=== PATIENT | female | born 1975 | race Caucasian/White ===

== ENCOUNTER 2020-05-06 15:03 | Emergency (ER) | payer OTHER ==
[2020-05-06] MEDS ORDERED: DIAZEPAM 5 MG TABLET ONE (15:32)
[2020-05-06] MEDS ORDERED: FENTANYL CITR 100 MCG/2 ML ONE ×2 (15:32→16:48)
--- NOTE | 2020-05-06 16:22 | RAD REPORT ---
EXAM DESCRIPTION: CTSpine Lumbar Wo Con05/06/2020 4:12 pm CLINICAL HISTORY: Back injury with back pain and radiculopathy COMPARISON: None TECHNIQUE: Computed axial tomography lumbar spine was obtained with coronal and sagittal reconstruct ion. All CT scans are performed using dose optimization technique as appropriate and may include automated exposure control or mA/KV adjustment according to patient size. FINDINGS: Spondylolysis at L5 with mild anterior subluxation L5 on S1. No acute fracture. Spinal stenosis is not noted. IMPRESSION: Spondylolysis at L5 with mild anterior subluxation L5 on S1. No acute fracture.
--- NOTE | 2020-05-06 16:38 | RAD REPORT ---
EXAM DESCRIPTION: CTThoracic Spine W/o Cont05/06/2020 4:13 pm CLINICAL HISTORY: Back injury with Back pain with radiculopathy COMPARISON: None TECHNIQUE: Computed axial tomography of thoracic spine was obtained with coronal and sagittal recons truction. All CT scans are performed using dose optimization technique as appropriate and may include automated exposure control or mA/KV adjustment according to patient size. FINDINGS: Acute burst fracture T12 vertebral body with retropulsion of a fragment into the spinal ca nal. The spinal canal is narrowed approximately 40%. The vertebral body is compressed approximately 6 8%. Involvement of the pedicles is not clearly seen. . Minimal compression of the T4 and T9 vertebral body appears chronic. No dislocation IMPRESSION: T12 vertebral body burst fracture
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
[2020-05-06] MEDS ORDERED: MORPHINE 4 MG/ML SYR ONE (17:15)
[2020-05-06] MEDS ORDERED: NA CHLORIDE 0.9% 100 ML IV ONE ×2 (17:38→18:18)
[2020-05-06] MEDS ORDERED: HYDROMORPHONE HCL 2 MG/ML inj ONE (17:38)
[2020-05-06] MEDS ORDERED: HYDROMORPHONE HCL 1 MG/ML INJ ONE (18:18)
[2020-05-06 18:38] VITALS: TEMP 97.3; O2SAT 100
[2020-05-06 18:45] VITALS: BP 129/91
--- OUTSIDE RECORDS SUMMARY | 2020-05-10 23:21 | XMS REPORT | Clinical Summary ---
:1975 Author Organization [facility] Address [address] [place] [address] Care Team Providers Name Role Phone Unavailable Primary Care Provider Unavailable Allergies No Known Allergies Medications Medication Sig Dispensed Refills Start Date End Date Status lisinopril-hydroCHLORO Take 1 tablet 0 Suspended thiazide by mouth daily. (PRINZIDE,ZESTORETIC) 20-25 mg per tablet levothyroxine Take 100 mcg by 0 Suspended (SYNTHROID, mouth Every LEVOTHROID) 100 MCG morning on an tablet empty stomach. Active Problems Problem Noted Date Intractable pain 05/09/2020 Smoking 05/07/2020 Hypothyroidism 05/07/2020 Hypertension 05/07/2020 T12 burst fracture 05/06/2020 Encounters Date Type Specialty Care Team Description 05/07/2020 Anesthesia Event Donald Bunn MD 05/07/2020 Surgery August Campa, LAMINECTOMY, THORACIC MD W/FUSION 05/06/2020 Hospital Encounter General Internal Denia Pinedo T12 burst fracture (HCC); Medicine MD Elvie Essential hypertension; Joselin Wilson Intractable pain; MD Elías Hypothyroidism, unspecified type Lacy Mishra MD Changela, Kinjal M., MD 05/06/2020 Travel after 05/10/2019 Social History Tobacco Use Types Packs/Day Years Used Date Current Every Day Smoker Cigarettes 0.5 Sta rted: 1988 Smokeless Tobacco: Never Used Tobacco Cessation: Ready to Quit: Yes; C ounseling Given: Yes Sex Assigned at Date Recorded Not on file Job Start Date Occupation Industry Not on file Not on file Not on file Travel History Travel Start Travel End No recent travel history available. Last Filed Vital Signs Vital Sign Reading Time Taken Blood Pressure 113/56 05/10/2020 7:23 PM CDT Pulse 77 05/10/2020 7:23 PM CDT Temperature 37.1 C (98.7 F) 05/10/2020 7:23 PM CDT Respiratory Rate 18 05/10/2020 7:23 PM CDT Oxygen Saturation 99% 05/10/2020 7:23 PM CDT Inhaled Oxygen Concentration - - Weight 64.9 kg (143 lb) 05/06/2020 8:44 PM CDT Height 165.1 cm (5' 5") 05/06/2020 8:44 PM CDT Body Mass Index 23.8 05/06/2020 8:44 PM CDT Plan of Treatment Health Maintenance Due Date Last Done Comments PNEUMOCOCCAL VACCINE 2-64 YEARS AT RISK (1 of - 1981 PPSV23) CERVICAL CANCER SCREENING PAP ONLY (Age 21-65) 1996 LIPID PANEL 2020 INFLUENZA VACCINE (#1) 2020 Implants Implanted 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 Device Shelf Model / Identifier Expiration Serial / Date Lot Grft Aaron Bone 3demin Fbr 5.0 [id number] - [id number] IMPLANTS Spine BACTERIN INTL 01/02/2025 [id number] / Implanted: Qty: 1 on 05/07/2020 by August Campa MD [employer] [id number] / [facility] Aaron Bone 3demin Fbr 10ml [id number] - [id number] IMPLANTS Spine BACTERIN INTL 12/23/2024 [id number] / Implanted: Qty: 1 on 05/07/2020 by August Campa MD Thor[employer] ic INC [id number] / [facility] Aaron Bone 3demin Fbr 5.0 [id number] - [id number] IMPLANTS Spine BACTERIN INTL 01/02/2025 [id number] / Implanted: Qty: 1 on 05/07/2020 by August Campa MD Thorac ic INC [id number] / [employer] Sm [id number] - [id number] IMPLANTS N/A: Spine MEDTRONIC:SPINA 03/03/2022 [id number] / Implanted: Qty: 1 on 05/07/2020 by August Campa MD Thorac ic L [employer]OLOG[employer] / [id number] Scr Marcin Bone Mod St 6.5x45mm 77-1845 - [id number] IMPLANTS N/A : Spine ORTHOFIX [id number] / Implanted: Qty: 4 on 05/07/2020 by August Campa MD Thorac ic INTL:ORTHOFIX / Sid Firebird Str 140mm - [id number] IMPLANTS N/A: Spine ORTHOF IX 520 / Implanted: Qty: 2 on 05/07/2020 by August Campa MD Thorac ic INTL:ORTHOFIX / Grft Aaron Bone 3demin Fbr 10ml [id number] - [id number] IMPLANTS N/A: Spine BACTERIN INTL 12/23/2024 [id number] / Implanted: Qty: 1 on 05/07/2020 by August Campa MD Thor[employer] INC [id number] / Set Screws N/A: Spine ORTHOFIX INC 36-20 01 / Implanted: Qty: 9 on 05/07/2020 by August Campa MD Thorac ic / 5.5 X 25mm Shank N/A: Spine ORTHOFIX INC [id number] / Implanted: Qty: 1 on 05/07/2020 by August Campa MD Thorac ic / 5.5x45mm Shank N/A: Spine ORTHOFIX INC 7 [id number] / Implanted: Qty: 4 on 05/07/2020 by August Campa MD Thorac ic / Top Loading Tulip N/A: Spine ORTHOFIX INC [id number] / Implanted: Qty: 9 on 05/07/2020 by August Campa MD Thorac ic / Procedures The patient is currently admitted. The information in this section might not be complete until the patient is discharged. Procedure Name Priority Date/Time Associated Diagnosis Comme nts CBC W/PLT COUNT & Routine 05/10/2020 4:35 Result s for this AUTO DIFFERENTIAL AM CDT procedure are in the results section. ABORH, MANUAL STAT 05/10/2020 4:35 Results fo r this AM CDT procedure are i n the results section. BASIC METABOLIC PANEL Routine 05/10/2020 4:35 Re sults for this (7) AM CDT procedure are i n the results section. CBC W/PLT COUNT & Routine 05/10/2020 4:35 Result s for this AUTO DIFFERENTIAL AM CDT procedure are in the results section. TRANSFUSION SERVICE 05/08/2020 6:01 REPORT - SCAN PM CDT XR SPINE THORACIC 2 Routine 05/08/2020 4:29 Resu lts for this VIEWS PM CDT procedure are i n the results section. HEMOGLOBIN AND Routine 05/08/2020 4:08 Results f or this HEMATOCRIT AM CDT procedure are i n the results section. BASIC METABOLIC PANEL Routine 05/08/2020 4:08 Re sults for this (7) AM CDT procedure are i n the results section. PROCEDURE W/ C-ARM 05/07/2020 7:20 Compression fractu re PM CDT of thoracic vertebra, initial encounter, unspecified thoracic vertebral level (HCC) Special Needs REQ: KANDI, NEURO MONITOR LAMINECTOMY,THORACIC W/FUSION 05/07/2020 7:20 PM CDT Compression fracture of thoracic vertebra, initial encounter, unspecified thoracic vertebral level (HCC) Special Needs REQ: KANDI, NEURO MONITOR MR THORACIC SPINE WITHOUT STAT 05/07/2020 6:24 PM CDT Results for this IV CONTRAST procedure are i n the results section . FL FLUORO NON-SPECIFIC UP Routine 05/07/2020 10:21 AM CDT Results for this TO 1 HOUR procedure are i n the results section . CBC W/PLT COUNT & AUTO Routine 05/07/2020 4:59 AM CDT Results for this DIFFERENTIAL procedure are i n the results section . TYPE AND SCREEN, AUTOMATED Routine 05/07/2020 4:59 AM CDT Results for this procedure are i n the results section . PT/APTT Routine 05/07/2020 4:59 AM CDT Resu lts for this procedure are i n the results section . BASIC METABOLIC PANEL (7) Routine 05/07/2020 4:59 AM CDT Results for this procedure are i n the results section . CBC W/PLT COUNT & AUTO Routine 05/07/2020 4:59 AM CDT Results for this DIFFERENTIAL procedure are i n the results section . SARS-COV2/RT-PCR (HS & STAT 05/07/2020 12:00 AM CDT Results for this REF LABS) procedure are i n the results section . after 05/10/2019 Results ABORH, manual (05/10/2020 4:35 AM CDT) ABO Grouping O [facility] Rh Factor POS [facility] Specimen Blood Performing Organization Address City/State/Zipcode Phone Number [facility] [address] [place] [address] CBC with platelet count + automated diff (05/10/2020 4:35 AM CDT)Only the most recent of2 resultswithin the time period is included. WBC 6.8 3.5 - 10.5 K/L [facility] RBC 2.88 (L) 3.93 - 5.22 M/L [facility] Hemoglobin 7.7 (L) 11.2 - 15.7 GM/DL [facility] Hematocrit 25.7 (L) 34.1 - 44.9 % [facility] MCV 89.2 79.4 - 94.8 fL [facility] MCH 26.7 25.6 - 32.2 pg [facility] MCHC 30.0 (L) 32.2 - 35.5 GM/DL [facility] RDW 15.0 (H) 11.7 - 14.4 % [facility] Platelets 240 150 - 450 K/CU MM [facility] MPV 10.0 9.4 - 12.3 fL [facility] nRBC 0 0 - 0 /[address] [facility] % Neutros 67 % [facility] % Lymphs 19 % [facility] % Monos 11 % [facility] % Eos 2 % [facility] % Baso 0 % [facility] # Neutros 4.60 1.56 - 6.13 K/L [facility] # Lymphs 1.29 1.18 - 3.74 K/L [facility] # Monos 0.75 (H) 0.24 - 0.36 K/L [facility] # Eos 0.15 0.04 - 0.36 K/L [facility] # Baso 0.02 0.01 - 0.08 K/L [facility] Immature Granulocytes-Relative 0 0 - 1 % C [facility] Specimen Blood Performing Organization Address City/[facility]/Zipcode Phone Number [facility] [address] [place] [address] CENTER Basic Metabolic Panel (05/10/2020 4:35 AM CDT)Only the most recent of3 results within the time period is included. Sodium 133 (L) 136 - 145 meq/L [facility] Potassium 4.7 3.5 - 5.1 meq/L [facility] Chloride 103 98 - 107 meq/L [facility] CO2 24 22 - 29 meq/L [facility] BUN 13 7 - 21 mg/dL [facility] Creatinine 0.72 0.57 - 1.25 mg/dL [facility] Glucose 79 70 - 105 mg/dL [facility] Calcium 8.3 (L) 8.4 - 10.2 mg/dL [facility] EGFR 88Comment: ESTIMATED GFR IS mL/min/1.73 sq m [facility] NOT ACCURATE [facility] CLEARANCE IN PREDICTING GLOMERULAR FILTRATION RATE. ESTIMATED GFR IS NOT APPLICABLE FOR DIALYSIS PATIENTS. Specimen Blood Narrative Performed At Cut Out [facility] HARRY Cardoza [facility] Performing Organization Address City/[facility]/Zipcode Phone Number [facility] [address] [place] [address] [place] TRANSFUSION SERVICE REPORT - SCAN (05/08/2020 6:01 PM CDT) Narrative Performed At This result has an attachment that is no t available. XR spine thoracic 2 views (05/08/2020 4:29 PM CDT) Specimen Narrative Performed At FINAL REPORT [facility] Clinical history: T10-L2 fusion Technique: AP and lateral views are obta ined of the thoracic spine COMPARISON: MRI thoracic spine from 05/07 FINDINGS/IMPRESSION: There are postsurgical changes from post erior instrumented fusion from T10 through L2. Stabilization rods and bi-pedicular screws are present at T10, T11, L1, and L2. Single right uni-pedicular screw noted at T12. Hardware appears intact an d in appropriate position. Overlying skin trudy and surgical drai nage catheter noted. Severe compression deformity again noted within the T12 vertebral body. No acute fracture or dislocation i s appreciated. Signed: Tyron Lang MD Report Verified Date/Time:05/08/2020 22:12:16 Reading Location: [address] Consult [facility] Procedure Note Interface, External Ris In - 05/08/2020 10:14 PM CDT FINAL REPORT Clinical history: T10-L2 fusion Technique: AP and lateral views are obta ined of the thoracic spine COMPARISON: MRI thoracic spine from 05/07 FINDINGS/IMPRESSION: There are postsurgical changes from post erior instrumented fusion from T10 through L2. Stabilization rods and bi-pedicular screws are present at T10, T11, L1, and L2. Single right uni-pedicular screw noted at T12. Hardware appears intact an d in appropriate position. Overlying skin trudy and surgical drai nage catheter noted. Severe compression deformity again noted within the T12 vertebral body. No acute fracture or dislocation i s appreciated. Signed: Tyron Lang MD Report Verified Date/Time: 05/08/2020 2 2:12:16 Reading Location: [facility] C013 Consult [facility] Room Performing Organization Address City/State/Zipcode Phone Number [facility] Hemoglobin and hematocrit (05/08/2020 4:08 AM CDT) Hemoglobin 9.2 (L) 11.2 - 15.7 GM/DL [facility] Hematocrit 29.7 (L) 34.1 - 44.9 % [facility] Specimen Blood Narrative Performed At Cut Out Marker ID - [id number] [facility] Performing Organization Address City/State/Zipcode Phone Number [facility] [address] [place] [address] CENTER MR thoracic spine without IV contrast (05/07/2020 6:24 PM CDT) Specimen Narrative Performed At FINAL REPORT [employer] MR Thoracic spine without contrast. CLINICAL HISTORY: T-spine canal stenosis TECHNIQUE: MRI of the thoracic spine uti lizing sagittal T1, T2, STIR, and axial T1, T2-weighted images. COMPARISON: None FINDINGS: Significant motion artifact on multiple sequences limits evaluation particularly on the STIR sequence. Chron ic height loss of the T4 vertebral body superior endplate. Superi or endplate compression fracture of the T9 vertebral body, with associated marrow edema . Acute compression deformity of the T12 v ertebral body which involves the posterior vertebral body, 8 mm retro pulsion of posterior fracture fragments into the canal resulting in mo derate spinal canal stenosis. There is mild neural foraminal stenosis at T11-12. There is no definite cord signal abnormality. There is likely disruption of the anterior longitudinal ligament at this l evel. Posterior longitudinal ligament is not well evaluated. There is associated focal thoracic kyphosis at T11-12. Mild multilevel degenerative changes with disc space narrowing most notably in the midt horacic spine. Prevertebral edema adjacent to the T12 vertebral body . Otherwise visualized soft tissues are unremarkable. Limited evalua tion for epidural hematoma given motion artifact however no definit e large-volume epidural hematoma is identified.. IMPRESSION: Examination limited by motion artifact. Acute superior endplate compression defo rmity of the T9 vertebral body. Acute compression fracture of the T12 ve rtebral body with focal kyphosis and 8 mm retropulsion of the po sterior fracture fragments into the canal resulting in moderate spi nal canal stenosis. There is likely disruption of the anterior longit udinal ligament. Signed: Ashu Hanley MD Report Verified Date/Time:05/07/2020 18:46:16 Procedure Note Interface, External Ris In - 05/07/2020 6:48 PM CDT FINAL REPORT MR Thoracic spine without contrast. CLINICAL HISTORY: T-spine canal stenosis TECHNIQUE: MRI of the thoracic spine uti lizing sagittal T1, T2, STIR, and axial T1, T2-weighted images. COMPARISON: None FINDINGS: Significant motion artifact on multiple sequences limits evaluation particularly on the STIR sequence. Chron ic height loss of the T4 vertebral body superior endplate. Superi or endplate compression fracture of the T9 vertebral body, with associated marrow edema . Acute compression deformity of the T12 v ertebral body which involves the posterior vertebral body, 8 mm retro pulsion of posterior fracture fragments into the canal resulting in mo derate spinal canal stenosis. There is mild neural foraminal stenosis at T11-12. There is no definite cord signal abnormality. There is likely disruption of the anterior longitudinal ligament at this l evel. Posterior longitudinal ligament is not well evaluated. There is associated focal thoracic kyphosis at T11-12. Mild multilevel de generative changes with disc space narrowing most notably in the midt horacic spine. Prevertebral edema adjacent to the T12 vertebral body . Otherwise visualized soft tissues are unremarkable. Limited evalua tion for epidural hematoma given motion artifact however no definit e large-volume epidural hematoma is identified.. IMPRESSION: Examination limited by motion artifact. Acute superior endplate compression defo rmity of the T9 vertebral body. Acute compression fracture of the T12 ve rtebral body with focal kyphosis and 8 mm retropulsion of the po sterior fracture fragments into the canal resulting in moderate spi nal canal stenosis. There is likely disruption of the anterior longit udinal ligament. Signed: Ashu Hanley MD Report Verified Date/Time: 05/07/2020 1 8:46:16 Performing Organization Address City/State/Zipcode Phone Number GE RIS FL fluoro non-specific up to 1 hour (05/07/2020 10:21 AM CDT) Specimen Narrative Performed At Fluoroscopic unit utilized for a procedure performed i n the OR.No GE RIS interpretation was requested.Refer to the operativ e report for findings.Refer to PACS for patient radiation dose information. Procedure Note Interface, External Ris In - 05/07/2020 10:26 PM CDT Fluoroscopic unit utilized for a procedu re performed in the OR. No interpretation was requested. Refer to the operative r eport for findings. Refer to PACS for patient radiation dose information. Performing Organization Address City/[facility] Phone Number GE RIS Type and screen, automated (05/07/2020 4:59 AM CDT) ABO/RH AUTOMATED (BEAKER) O POSITIVE [facility] Ab Scrn NEGATIVE [facility] Specimen Blood Performing Organization Address [facility] Centercode Phone Number [address] [address] PT/aPTT (05/07/2020 4:59 AM CDT) Protime 13.1 11.9 - 14.2 seconds [facility] INR 1.02 <=5.90 [facility] PTT 30.0 22.5 - 36.0 seconds [facility] Specimen Blood Narrative Performed At Effective 12/30/2018: PT Reference Range [facility] Change New: 11.9-14.2Previous: 11.7-14.7 RECOMMENDED COUMADIN/WARFARIN INR THERAPY RANGES STANDARD DOSE: 2.0-3.0Includes: PROPHYLAXIS for venous thrombosis, systemic embolization; TREATMENT for venous thrombosis and/or pulmonary embolus. HIGH RISK: Target INR is 2.5-3.5 for patients wiht mechanical heart valves. Performing Organization Address [facility] Cent[facility]ode Phone Number [address] [address] CENTER SARS-CoV2/RT-PCR (Asymptomatic ONLY) (05/07/2020 12:00 AM CDT) SARS-COV2/RT-PCR Negative Not Detected, Negative, [facility] See external report for MEDICAL CENTER linked test SARS-COV-2 PERFORMING LAB [facility] Specimen Other Narrative Performed At Negative result for this test determines that [facility] SARS-CoV-2 RNA was not present in the specimen above the Limit of Detection (LOD).However, Negative results do not preclude SARS-CoV-2 infection and should not be used as the sole basis for treatment or patient management decisions. Negative results must be combined with clinical observations, patient history, and epidemiological information. A false negative result may occur if a specimen is improperly collected, transported or handled.A false negative result should be considered if patient's recent exposures or clinical presentation indicate that COVID-19 (SARS-CoV-2) is likely and diagnostic tests for other causes of illness are negative.Re-testing should be considered in cases of suspected false negatives. The limit of detection for this assay is 800 copies/mL. This SARS CoV-2 test is a real-time RT-PCR test intended for the qualitative detection of nucleic acid from SARS-CoV-2 in a nasopharyngeal swab specimen collected from individuals suspected of COVID-19 by their healthcare provider. This test has not been Food and Drug Administration (FDA) cleared or approved.This is a modified version of an approved Emergency Use Authorization (EUA) and is in the process of review by the FDA. Once authorized by the FDA, the issued EUA will be effective until the declaration that circumstances exist justifying the authorization of the emergency use of in vitro diagnostic tests for detection and/or diagnosis of COVID-19 is terminated under Section 564(b)(2) of the Act or the EUA is revoked under Section 564(g) of the Act. Fact Sheet for Healthcare Providers: https://www.[employer]com/sites/default/files/pro duct/documents/Fact_Sheet_HC_Providers_Lyra_SA RS-CoV-2.pdf Fact Sheet for Healthcare Patients: https://www.[employer] [place] [employer]com/sites/default/files/pro duct/documents/Fact_Sheet_Patients_Lyra_SARS-C oV-2.pdf Performing Laboratory: [facility] [address] [place] [address] Performing Organization Address City/State/Zipcode Phone Number [facility] [address] [place] [address] CENTER after 05/10/2019 Insurance Payer Benefit Plan / Group Subscriber ID Type Phone A indira VARGAS xxxxxxxxxxx Advance Directives For more information, please contact:[facility] [place], [place] [phone] Code Status Date Activated Date Inactivated Comments Full Code 05/06/2020 8:17 PM This code status was determined by: Patient
--- OUTSIDE RECORDS SUMMARY | 2020-05-10 23:22 | XMS REPORT | Continuity of Care Document ---
:1975 Author Organization [facility] t Address [address] [place] [address] Care Team Providers Name Role Phone Sepideh DICK, Yamilet Attending Clinician Joey Campa MD Attending Clinician CARLOS MENDIOLA Attending Clinician Unavailable Carlos Mendiola MD Attending Clinician [phone] Elías Wilson MD Attending Clinician Andree Mishra MD Attending Clinician Israel Peres MD Attending Clinician Israel PERES Admitting Clinician Unavailable Payers Payer Name Policy Policy Number Effective Expiration Source Type Date Date AMBETTERAMBETTER xxxxxxxxxxx [facility] SU[facility]IOR[facility]xxx [facility] Problems Condition Condition Condition Status Onset Resolution Last Treating Co mments Source Name Details Category Date Date Treatment Clinician Date Intractabl Intractabl Disease Active 2019-[address] [facility] 00 Luna Smoking Smoking Disease Active 2019-[address] [facility] [address] [facility] 00 [facility] Hypothyroi Hypothyroi Disease Active 2019-[address] dism dism 0-04 [facility] - :: Medical 00 Luna Hypertensi Hypertensi Disease Active 2019-[address] on on 0-04 [facility] 00:00: Medical 00 Luna T12 burst T12 burst Disease Active 2019-[address] [facility] fracture fracture 0-03 [facility] :[facility]: [facility] 00 Center Allergies, Adverse Reactions, Alerts This patient has no known allergies or adverse reactions. Social History Social Habit Start Date Stop Date Quantity Comments Source History of tobacco Current every [facility] - use day smoker [facility] Center Sex Assigned At [facility] Cigarettes smoked 2020-05-10 2020-05-10 [facility] - current (pack per 00:00:00 00:00:00 Medical Center day) - Reported Smoking Status Start Date Stop Date Source Current every day smoker 2020-05-10 00:00:00 [facility] Medications Ordered Filled Start Stop Current Ordering Indication Dosage Frequency Signature Comments Components Source Medication Medication Date Date Medication? Clinician (SIG) Name Name lisinopril- 2019-08 Yes 1{tbl} QD Take [address] hydroCHLORO 0-03 tablet by Jairon es - thiazide 23:23: mouth Medical (PRINZIDE,Z 43 daily. Center ESTORETIC) 20-25 mg per tablet levothyroxi 2019-08 Yes 100ug Take [address] ne 0-03 mcg by Thiago - (SYNTHROID, 23:23: mouth Medic al LEVOTHROID) 43 Every Center 100 MCG morning on tablet an empty stomach. Vital Signs Vital Name Observation Time Observation Value Comments Source Systolic blood 2020-05-10 19:23:00 113 mm[Hg] [facility] Diastolic blood 2020-05-10 19:23:00 56 mm[Hg] [facility] Heart rate 2020-05-10 19:23:00 77 /min [facility] Body temperature 2020-05-10 19:23:00 37.06 Faby [facility] Respiratory rate 2020-05-10 19:23:00 18 /min [facility] Oxygen saturation in 2020-05-10 19:23:00 99 /min [facility] Arterial blood by Medical Ce nter Pulse oximetry Body height 2020-05-06 20:44:00 165.1 cm [facility] Body weight Measured 2020-05-06 20:44:00 64.864 kg [facility] BMI 2020-05-06 20:44:00 23.80 kg/m2 [facility] Procedures Procedure Date / Time Performed Performing Clinician Sour e BASIC METABOLIC PANEL 2020-05-10 04:35:[address] [facility] (7) [facility] ABORH, MANUAL 2020-05-10 04:35:00 Candy Urena [facility] CBC W/PLT COUNT & AUTO 2020-05-10 04:35:[address] [facility] DIFFERENTIAL [facility] TRANSFUSION SERVICE 2020-05-08 18:01:47 Provider, Valdemar [facility] - REPORT - SCAN Scanning [facility] XR SPINE THORACIC 2 2020-05-08 16:29:00 Kayla Parks [facility] - VIEWS [facility] BASIC METABOLIC PANEL 2020-05-08 04:08:[address] [facility] (7) [facility] HEMOGLOBIN AND 2020-05-08 04:08:00 Kayla Parks [facility] - HEMATOCRIT [facility] LAMINECTOMY,THORACIC 2020-05-07 19:20:00 August Campa [facility] - W/FUSION [facility] PROCEDURE W/ C-ARM 2020-05-07 19:20:00 August Campa [facility] - [facility] MR THORACIC SPINE 2020-05-07 18:24:00 Kayla Parks [facility] - WITHOUT IV CONTRAST [facility] FL FLUORO NON-SPECIFIC 2020-05-07 10:21:00 August Campa [facility] - UP TO 1 HOUR [facility] BASIC METABOLIC PANEL 2020-05-07 04:59:[address] [facility] (7) [facility] PT/APTT 2020-05-07 04:59:00 Channing Moctezuma [facility] TYPE AND SCREEN, 2020-05-07 04:59:00 Channing Moctezuma [facility] s - AUTOMATED Medical Center CBC W/PLT COUNT & AUTO 2020-05-07 04:59:00 Channing Moctezuma [facility] - DIFFERENTIAL [facility] SARS-COV2/RT-PCR ([facility] & 2020-05-07 00:00:00 Channing Moctezuma [facility] - REF LABS) [facility] Plan of Care Planned Activity Planned Date Details Comments Source Future Scheduled 2020-04-04 INFLUENZA VACCINE (#1) [facility] Test 00:00:00 [code = INFLUENZA Medical Ce nter VACCINE (#1)] Future Scheduled [address] [facility] - Test 00:00:00 (procedure) [code = Medical Center [id number]] Future Scheduled [address] [facility] - Test 00:00:00 malignant neoplasm of [facility] cervix (procedure) [code = 956713677] Future Scheduled [address] [facility] - Test 00:00:00 2-64 YEARS AT RISK (1 Medica l Center of 1 - PPSV23) [code = PNEUMOCOCCAL VACCINE 2-64 YEARS AT RISK (1 of 1 - PPSV23)] Results Test Description Test Time Test Comments Results Result Comments Source KATELYN, manual 2020-05-10 07:09:00 Test Item Value Reference Range Interpretation Comme nts ABO Grouping (test code = 2588) O Rh Factor (test code = 2589) POS [facility] Metabolic [id number] 06:29:00 Test Item Value Reference Range Interpretation Comments Sodium (test code = 133 meq/L 136-145 L 2951-2) Potassium (test code = 4.7 meq/L 3.5-5.1 2823-3) Chloride (test code = 103 meq/L 98-107 2075-0) CO2 (test code = 24 meq/L 22-29 2028-9) BUN (test code = 13 mg/dL 7-21 3094-0) Creatinine (test code 0.72 mg/dL 0.57-1.25 = 2160-0) Glucose (test code = 79 mg/dL 70-105 2345-7) Calcium (test code = 8.3 mg/dL 8.4-10.2 L 52308-0) EGFR (test code = 88 mL/min/1.73 [place] [address]-6) NOT ACCURATE CREATININE CLEARANCE IN PREDICTING GLOMERULAR FILTRATION RATE . ESTIMATED GFR I S NOT APPLICABLE FOR DIALYSIS PATIENTS. RE (test code = RE) Cost Reduction Engineer ID - ANGELY M Lab Interpretation Abnormal (test code = 85621-2) [facility] METABOLIC [id number] 06:29:00 Test Item Value Reference Range Interpretation Comments SODIUM (BEAKER) 133 meq/L 136-145 L (test code = 381) POTASSIUM (BEAKER) 4.7 meq/L 3.5-5.1 (test code = 379) CHLORIDE (BEAKER) 103 meq/L 98-107 (test code = 382) CO2 (BEAKER) (test 24 meq/L 22-29 code = 355) BLOOD UREA NITROGEN 13 mg/dL 7-21 (BEAKER) (test code = 354) CREATININE (BEAKER) 0.72 mg/dL 0.57-1.25 (test code = 358) GLUCOSE RANDOM 79 mg/dL 70-105 (BEAKER) (test code = 652) CALCIUM (BEAKER) 8.3 mg/dL 8.4-10.2 L (test code = 697) EGFR (BEAKER) (test 88 mL/min/1.73 ESTIMA LORRIE GFR IS code = 1092) sq m NOT ACCURATE CREATININE CLEARANCE IN PREDICTING GLOMERULAR FILTRATION RATE . ESTIMATED GFR I S NOT APPLICABLE FOR DIALYSIS PATIEN TS. Cost Reduction Engineer ID - ANGELY MCBC with platelet count + automated [id number] 05:48:00 Test Item Value Reference Range Interpretation Comments WBC (test code = 6690-2) 6.8 3.5- 10.5 K/L RBC (test code = 789-8) 2.88 3.93- 5.22 M/L L MCHC (test code = 786-4) 30.0 32.2- 35.5 GM/DL L Hematocrit (test code = 4544-3) 25.7 % 34.1-44.9 L MCV (test code = 787-2) 89.2 fL 79.4-94.8 MCH (test code = 785-6) 26.7 pg 25.6-32.2 RDW (test code = 788-0) 15.0 % 11.7-14.4 H Platelets (test code = 777-3) 240 150- 450 K/CU MM MPV (test code = 52187-2) 10.0 fL 9.4-12.3 nRBC (test code = 413) 0 0- 0 /100 WBC % Neutros (test code = 429) 67 % % Lymphs (test code = 430) 19 % % Monos (test code = 431) 11 % % Eos (test code = 432) 2 % % Baso (test code = 437) 0 % # Neutros (test code = 670) 4.60 1.56- 6.13 K/L # Lymphs (test code = 414) 1.29 1.18- 3.74 K/L # Monos (test code = 415) 0.75 0.24- 0.36 K/L H # Eos (test code = 416) 0.15 0.04- 0.36 K/L # Baso (test code = 417) 0.02 0.01- 0.08 K/L Immature Granulocytes-Relative 0 % 0-1 (test code = 2801) Lab Interpretation (test code = Abnormal 17709-9) [facility] W/PLT COUNT & AUTO [id number] 05:48:00 Test Item Value Reference Range Interpretation Comments WHITE BLOOD CELL COUNT (BEAKER) 6.8 K/ L 3.5-10.5 (test code = 775) RED BLOOD CELL COUNT (BEAKER) 2.88 M/ L 3.93-5.22 L (test code = 761) HEMOGLOBIN (BEAKER) (test code = 7.7 GM/DL 11.2-15.7 L 410) HEMATOCRIT (BEAKER) (test code = 25.7 % 34.1-44.9 L 411) MEAN CORPUSCULAR VOLUME (BEAKER) 89.2 fL 79.4-94.8 (test code = 753) MEAN CORPUSCULAR HEMOGLOBIN 26.7 pg 25.6-32.2 (BEAKER) (test code = 751) MEAN CORPUSCULAR HEMOGLOBIN CONC 30.0 GM/DL 32.2-35.5 L (BEAKER) (test code = 752) RED CELL DISTRIBUTION WIDTH 15.0 % 11.7-14.4 H (BEAKER) (test code = 412) PLATELET COUNT (BEAKER) (test 240 K/CU MM 150-450 code = 756) MEAN PLATELET VOLUME (BEAKER) 10.0 fL 9.4-12.3 (test code = 754) NUCLEATED RED BLOOD CELLS 0 /100 WBC 0-0 (BEAKER) (test code = 413) NEUTROPHILS RELATIVE PERCENT 67 % (BEAKER) (test code = 429) LYMPHOCYTES RELATIVE PERCENT 19 % (BEAKER) (test code = 430) MONOCYTES RELATIVE PERCENT 11 % (BEAKER) (test code = 431) EOSINOPHILS RELATIVE PERCENT 2 % (BEAKER) (test code = 432) BASOPHILS RELATIVE PERCENT 0 % (BEAKER) (test code = 437) NEUTROPHILS ABSOLUTE COUNT 4.60 K/ L 1.56-6.13 (BEAKER) (test code = 670) LYMPHOCYTES ABSOLUTE COUNT 1.29 K/ L 1.18-3.74 (BEAKER) (test code = 414) MONOCYTES ABSOLUTE COUNT (BEAKER) 0.75 K/ L 0.24-0.36 H (test code = 415) EOSINOPHILS ABSOLUTE COUNT 0.15 K/ L 0.04-0.36 (BEAKER) (test code = 416) BASOPHILS ABSOLUTE COUNT (BEAKER) 0.02 K/ L 0.01-0.08 (test code = 417) IMMATURE GRANULOCYTES-RELATIVE 0 % 0-1 PERCENT (BEAKER) (test code = 2801) RAD, SPINE, THORACIC, 2 [id number] 22:12:00Reason for exam:->Standing thoracolumbar spine xray, (fusion T10-L2)FINAL REPORT Clinical history: T10-L2 fusion Technique: AP and lateral views are obtained of the thoracic spine COMPARISON: MRI thoracic spine from 05/07/2020 FINDINGS/IMPRESSION:There are postsurgical changes from posterior instrumented fusion from T10 through L2. Stabilization rods and bi-pedicular screws are present at T10, T11, L1, and L2. Single right uni-pedicular screw noted at T12. Hardware appears intact and in appropriate position. Overlying skin trudy and surgical drainage catheter noted. Severe compression deformity again noted within the T12 vertebral body. No acute fracture or dislocation is appreciated. Signed: Tyron Lang MDReport Verified Date/Time: 05/08/2020 22:12:16 Reading Location: [facility] C013W Consult Reading Room XR spine thoracic 2 [id number] 22:12:00Interface, External Ris In - 05/08/2020 10:14 PM CDTFINAL REPORT Clinical history: T10-L2 fusion Technique: AP and lateral views are obtained of the thoracic spine COMPARISON: MRI thoracic spine from 05/07/2020 FINDINGS/IMPRESSION:There are postsurgical changes from posterior instrumented fusion from T10 through L2. Stabilization rods and bi-pedicular screws are present at T10, T11, L1, and L2. Single right uni-pedicular screw noted at T12. Hardware appears intact and in appropriate position. Overlying skin trudy and surgical drainage catheter noted. Severe compression deformity again noted within the T12 vertebral body. No acute fracture or dislocation is appreciated. Signed: Tyron Lang MDReport Verified Date/Time: 05/08/2020 22:12:16 Reading Location: [facility] C013W Consult Reading [facility] [id number] 05:07:00 Test Item Value Reference Range Interpretation Comments SODIUM (BEAKER) 134 meq/L 136-145 L (test code = 381) POTASSIUM (BEAKER) 5.0 meq/L 3.5-5.1 (test code = 379) CHLORIDE (BEAKER) 103 meq/L 98-107 (test code = 382) CO2 (BEAKER) (test 22 meq/L 22-29 code = 355) BLOOD UREA NITROGEN 16 mg/dL 7-21 (BEAKER) (test code = 354) CREATININE (BEAKER) 0.78 mg/dL 0.57-1.25 (test code = 358) GLUCOSE RANDOM 151 mg/dL 70-105 H (BEAKER) (test code = 652) CALCIUM (BEAKER) 8.0 mg/dL 8.4-10.2 L (test code = 697) EGFR (BEAKER) (test 80 mL/min/1.73 ESTIMA LORRIE GFR IS code = 1092) sq m NOT ACCURATE CREATININE CLEARANCE IN PREDICTING GLOMERULAR FILTRATION RATE . ESTIMATED GFR I S NOT APPLICABLE FOR DIALYSIS PATIEN TS. Cost Reduction Engineer ID - EDASIHemoglobin and [id number] 04:30:00 Test Item Value Reference Range Interpretation Comments Hemoglobin (test code = 9.2 11.2- 15.7 GM/DL L 786-4) Hematocrit (test code = 29.7 % 34.1-44.9 L 4544-3) RE (test code = RE) Cost Reduction Engineer ID - [id number] Lab Interpretation (test Abnormal code = 47344-8) [facility] AND [id number] 04:30:00 Test Item Value Reference Range Interpretation Comments HEMOGLOBIN (BEAKER) (test code = 9.2 GM/DL 11.2-15.7 L 410) HEMATOCRIT (BEAKER) (test code = 29.7 % 34.1-44.9 L 411) Cost Reduction Engineer ID - [id number], SPINE, THORACIC, WITHOUT [id number] 18:46:00 Unlisted Reason for Exam - Click Yes and Enter Reason Below->NoT 12 traumatic fractureFINAL REPORT MR Thoracic spine without contrast. CLINICAL HISTORY: T-spine canal stenosis TECHNIQUE: MRI of the thoracic spine utilizing sagittal T1, T2, STIR, and axial T1, T2-weighted images. COMPARISON: None FINDINGS:Significant motion artifact on multiple sequences limits vinh luation particularly on the STIR sequence. Chronic height loss of the T4 vertebral body superior endplate. Superior endplate compression fracture of the T9 vertebral body, with associated marrow edema . Acute compression deformity of the T12 vertebral body which involves the posterior vertebral body, 8 mm retropulsion of posterior fracture fragments into the canal resulting in moderate spinal canal stenosis. There is mild neural foraminal stenosis at T11- 12. There is no definite cord signal abnormality. There is likely disruption of the anterior longitudinal ligament at this level. Posterior longitudinal ligament is not well evaluated. There is associated focal thoracic kyphosis at T11-12. Mild multilevel degenerative changes with disc space narrowing most notably in the midthoracic spine. Prevertebral edema adjacent to the T12 vertebral body. Otherwise visualized soft tissues are unremarkable. Limited evaluation for epidural hematoma given motion artifact however no definite large-volume epidural hematoma is identified.. IMPRESSION: Examination limited by motion artifact. Acute superior endplate compression deformity of the T9 vertebral body. Acute compression fracture of the T12 vertebralbody with focal kyphosis and 8 mm retropulsion of the posterior fracture fragments into the canal resulting in moderate spinal canal stenosis. There is likely disruption of the anterior longitudinal ligament. Signed: Ashu Hanley [facility] Verified Date/Time: 05/07/2020 18:46:16 MR thoracic spine without IV contrast 2020-05-07 18:46:00Interface, External Ris In - 05/07/2020 6:48 PM CDTFINAL REPORT MR Thoracic spine without contrast. CLINICAL HISTORY: T-spine canal stenosis TECHNIQUE: MRI of the thoracic spineutilizing sagittal T1, T2, STIR, and axial T1, T2-weighted images. COMPARISON: None FINDINGS:Significant motion artifact on multiple sequences limits evaluation particularly on the STIR sequence. Chronic height loss of the T4 vertebral body superior endplate. Superior endplate compression fracture of the T9 vertebral body, with associated marrow edema . Acute compression deformity of the T12 vertebral body which involves the posterior vertebral body, 8 mm retropulsion of posterior fracture fragmentsinto the canal resulting in moderate spinal canal stenosis. There is mild neural foraminal stenosis at T11-12. There is no definite cord signal abnormality. There is likely disruption of the anterior lo ngitudinal ligament at this level. Posterior longitudinal ligament is not well evaluated. There is associated focal thoracic kyphosis at T11-12. Mild multilevel degenerative changes with disc space narrowing most notably in the midthoracic spine. Prevertebral edema adjacent to the T12 vertebral body. Otherwise visualized soft tissues are unremarkable. Limited evaluation for epidural hematoma given motion artifact however no definite large-volume epidural hematoma is identified.. IMPRESSION: Examination limited by motion artifact. Acute superior endplate compression deformity of the T9 vertebral mohit dy. Acute compression fracture of the T12 vertebral body with focal kyphosis and 8 mm retropulsion of the posterior fracture fragments into the canal resulting in moderate spinal canal stenosis. There is likely disruption of the anterior longitudinal ligament. Signed: [facility] Verified Date/Time: 05/07/2020 18:46:16 [facility]ymptomatic ONLY[facility]2020-05-07 17:00:00 Test Item Value Reference Range Interpretation Comments SARS-COV2/RT-PCR Negative Not Detected, (test code = Negative, See 30572-6) external report for linked test SARS-COV-2 [facility] PERFORMING LAB (test code = 83028-4) RE (test code = Negative result for this RE) test determines that SARS-CoV-2 RNA was not present in the specimen above the Limit of Detection (LOD). However, Negative results do not preclude SARS-CoV-2 infection and should not be used as the sole basis for treatment or patient management decisions. Negative results must be combined with clinical observations, patient history, and epidemiological information. A false negative result may occur if a specimen is improperly collected, transported or handled. A false negative result should be considered if patient's recent exposures or clinical presentation indicate that COVID-19 (SARS-CoV-2) is likely and diagnostic tests for other causes of illness are negative. Re-testing should be considered in cases of suspected [...] Food and Drug Administration (FDA) cleared or approved. This is a modified version of an approved [...] of the Act. Fact Sheet for Healthcare Providers:https://www.[employer]/sites/default/f sherif/product/documents/F act_Sheet_HC_Providers_L sox_ANEC-BeA-7.pdf Fact Sheet for Healthcare Patients:https://www.[employer] del.[employer]/sites/default/fi les/product/documents/Fa ct_Sheet_Patients_Lyra_S ARS-CoV-2.pdf Performing Laboratory:[facility] [address] [facility] ([facility] & REF LABS)2020-05-07 17:00:00 Test Item Value Reference Range Interpretation Comments SARS-COV2/RT-PCR (test Negative Not Detected, Negative, code = 0294664) See external report for linked test SARS-COV-2 PERFORMING LAB [facility] (test code = 4445750) Negative result for this test determines that SARS-CoV-2 RNA was not present in the specimen above the Limit of Detection (LOD). However, Negative results do not preclude SARS-CoV-2 infection and should not be used as the sole basis for treatment or patient management decisions. Negative results mustbe combined with clinical observations, patient history, and epidemiological information. A false negative result may occur if a specimen is improperly collected, transported or handled. A false negative result should be considered if patient's recent exposures or clinical presentation indicate that COVID-19 (SARS-CoV-2) is likely and diagnostic tests for other causes of illness are negative. Re-testing should be considered in cases of suspected false negatives.The limit of detection for this assay is 800 copies/mL.This SARS CoV-2 test is a real-time RT-PCR test intended for the qualitative detection of nucleic acid from SARS-CoV-2 in a nasopharyngeal swab specimen collected from individuals susp ected of COVID-19 by their healthcare provider.This test has not been Food and Drug Administration (FDA) cleared or approved. This is a modified version of an approved [...] is revoked under Section 564(g) of the Act.Fact Sheet for Healthcare Providers:https://www.[employer].com/sites/default/files/product/documents/Fact_Shee q_PJ_Rekgxxvol_Uwug_QVBI-ZpJ-2.pdfFact Sheet for Healthcare Patients:https://www.[employer].com/sites/default/files/product/ documents/Eylx_Fjhrj_Nnpwcdpd_Fkug_KDJO-NpI-0.pdfPerforming Laboratory:[place] [address], [place] [address]MJ, FLUORO, NON- SPECIFIC, UP TO 1 [id number] 10:21:00Reason for exam:->T10 TO L2 Fluoroscopic unit utilized for a procedure performed in the OR. No interpretation was requested. Refer to the operative report for findings. Refer to PACS for patient radiation dose information.FL fluoro non-specific up to 1 [id number] 10:21:00Interface, External Ris In - 05/07/2020 10:26 PM CDTFluoroscopic unit utilized for a procedure performed in the OR. No interpretation was requested. Refer to the operative report for findings. Referto PACS for patient radiation dose information.[facility]OLIC [id number] 06:52:00 Test Item Value Reference Range Interpretation Comments SODIUM (BEAKER) 134 meq/L 136-145 L (test code = 381) POTASSIUM (BEAKER) 3.9 meq/L 3.5-5.1 (test code = 379) CHLORIDE (BEAKER) 99 meq/L 98-107 (test code = 382) CO2 (BEAKER) (test 26 meq/L 22-29 code = 355) BLOOD UREA NITROGEN 13 mg/dL 7-21 (BEAKER) (test code = 354) CREATININE (BEAKER) 0.76 mg/dL 0.57-1.25 (test code = 358) GLUCOSE RANDOM 90 mg/dL 70-105 (BEAKER) (test code = 652) CALCIUM (BEAKER) 8.6 mg/dL 8.4-10.2 (test code = 697) EGFR (BEAKER) (test 82 mL/min/1.73 ESTIMA LORRIE GFR IS code = 1092) sq m NOT ACCURATE CREATININE CLEARANCE IN PREDICTING GLOMERULAR FILTRATION RATE . ESTIMATED GFR I S NOT APPLICABLE FOR DIALYSIS PATIEN TS. Cost Reduction Engineer ID - [id number] 06:01:00 Test Item Value Reference Range Interpretation Comments Protime (test code = 13.1 11.9- 14.2 5902-2) seconds INR (test code = 1.02 <=5.90 6301-6) PTT (test code = 30.0 22.5- 36.0 43113-9) seconds RE (test code = RE) Effective 12/30/2018: PT Reference Range ChangeNew: 11.9-14.2 Previous: 11.7-14.7 RECOMMENDED COUMADIN/WARFARIN INR THERAPY RANGESSTANDARD DOSE: 2.0-3.0 Includes: PROPHYLAXIS for venous thrombosis, systemic embolization; TREATMENT for venous thrombosis and/or pulmonary embolus.HIGH RISK: Target INR is 2.5-3.5 for patients wiht mechanical heart valves. Lab Interpretation Normal (test code = 14332-3) [facility][id number] 06:01:00 Test Item Value Reference Range Interpretation Comments PROTIME (BEAKER) (test code = 13.1 seconds 11.9-14.2 759) INR (BEAKER) (test code = 370) 1.02 <=5.90 PARTIAL THROMBOPLASTIN TIME 30.0 seconds 22.5-36.0 (BEAKER) (test code = 760) Effective 12/30/2018: PT Reference Range ChangeNew: 11.9-14.2 Previous: 11.7- 14.7RECOMMENDED COUMADIN/WARFARIN INR THERAPY RANGESSTANDARD DOSE: 2.0-3.0 Includes: PROPHYLAXIS for venous thrombosis, systemic embolization; TREATMENT for venous thrombosis and/or pulmonary embolus.HIGH RISK: Target INR is2.5-3.5 for patients wiht mechanical heart valves.CBC W/PLT COUNT & AUTO [id number] 05:53:00 Test Item Value Reference Range Interpretation Comments WHITE BLOOD CELL COUNT (BEAKER) 7.5 K/ L 3.5-10.5 (test code = 775) RED BLOOD CELL COUNT (BEAKER) 3.93 M/ L 3.93-5.22 (test code = 761) HEMOGLOBIN (BEAKER) (test code = 10.5 GM/DL 11.2-15.7 L 410) HEMATOCRIT (BEAKER) (test code = 34.8 % 34.1-44.9 411) MEAN CORPUSCULAR VOLUME (BEAKER) 88.5 fL 79.4-94.8 (test code = 753) MEAN CORPUSCULAR HEMOGLOBIN 26.7 pg 25.6-32.2 (BEAKER) (test code = 751) MEAN CORPUSCULAR HEMOGLOBIN CONC 30.2 GM/DL 32.2-35.5 L (BEAKER) (test code = 752) RED CELL DISTRIBUTION WIDTH 14.8 % 11.7-14.4 H (BEAKER) (test code = 412) PLATELET COUNT (BEAKER) (test 315 K/CU MM 150-450 code = 756) MEAN PLATELET VOLUME (BEAKER) 9.4 fL 9.4-12.3 (test code = 754) NUCLEATED RED BLOOD CELLS 0 /100 WBC 0-0 (BEAKER) (test code = 413) NEUTROPHILS RELATIVE PERCENT 71 % (BEAKER) (test code = 429) LYMPHOCYTES RELATIVE PERCENT 17 % (BEAKER) (test code = 430) MONOCYTES RELATIVE PERCENT 10 % (BEAKER) (test code = 431) EOSINOPHILS RELATIVE PERCENT 1 % (BEAKER) (test code = 432) BASOPHILS RELATIVE PERCENT 0 % (BEAKER) (test code = 437) NEUTROPHILS ABSOLUTE COUNT 5.31 K/ L 1.56-6.13 (BEAKER) (test code = 670) LYMPHOCYTES ABSOLUTE COUNT 1.29 K/ L 1.18-3.74 (BEAKER) (test code = 414) MONOCYTES ABSOLUTE COUNT (BEAKER) 0.75 K/ L 0.24-0.36 H (test code = 415) EOSINOPHILS ABSOLUTE COUNT 0.10 K/ L 0.04-0.36 (BEAKER) (test code = 416) BASOPHILS ABSOLUTE COUNT (BEAKER) 0.02 K/ L 0.01-0.08 (test code = 417) IMMATURE GRANULOCYTES-RELATIVE 0 % 0-1 PERCENT (BEAKER) (test code = 2801) Type and screen, [id number] 05:52:00 Test Item Value Reference Range Interpretation Comments ABO/RH AUTOMATED (BEAKER) (test O POSITIVE code = 2260) Ab Scrn (test code = 890-4) NEGATIVE [facility]
== END 2020-05-06 18:22 | disposition short-term general hospital (02) ==
LOC: ER 15:03
DX: S22.081A Stable burst fracture of T11-T12 vertebra, initial encounter for closed fracture (principal); X58.XXXA Exposure to other specified factors, initial encounter; Y93.89 Activity, other specified; Y92.89 Other specified places as the place of occurrence of the external cause; F17.210 Nicotine dependence, cigarettes, uncomplicated; I10 Essential (primary) hypertension
CPT/HCPCS: 72131; 72128; 96375; 96372; 96374; 99285; J1170 ×2; J3010 ×2

== ENCOUNTER 2020-10-11 14:15 | Emergency (ER) | payer OTHER, SELFPAY ==
--- OUTSIDE RECORDS SUMMARY | 2020-10-11 14:19 | XMS REPORT | Continuity of Care Document ---
:1975 Author Organization [facility] t Address [address] [place] [address] Care Team Providers Name Role Phone Lokesh DICK, Joey Attending Clinician Unavailable Dimple COLLINS, Radha Attending Clinician Carlos Mendiola MD Attending Clinician [phone] Steve DICK, Elías Attending Clinician Andree Mishra MD Attending Clinician Israel Peres MD Attending Clinician Gualberto Navarro MD Attending Clinician Yamilet Bunn MD Attending Clinician CARLOS MENDIOLA Attending Clinician Unavailable Israel PERES Admitting Clinician Unavailable Payers Payer Name Policy Type Policy Effective Date Expiration Date [facility] Number DEVENDRA [id number] [id number] /2019-Present Center Problems Condition Condition Condition Status Onset Resolution Last Treating Co mments Source Name Details Category Date Date Treatment Clinician Date Intractabl Intractabl Disease Active 2019-[address] [facility] pain e pain [facility]06 [facility] 00 [place] Smoking Smoking Disease Active 2019-[address] [facility]04 [facility] 00 [place] Hypothyroi Hypothyroi Disease Active 2019-[address] dism dism 0-04 [facility] - 00:: [facility] [place] Hypertensi Hypertensi Disease Active 2019-[address] on on 0-04 [facility] - 00:: [facility] 00 [place] T12 burst T12 burst Disease Active 2019-[address] [facility] fracture fracture 0-03 [facility] - 00:00: Medical 00 [place] Allergies, Adverse Reactions, Alerts This patient has no known allergies or adverse reactions. Social History Social Habit Start Date Stop Date Quantity Comments Source History of tobacco Current every [facility] - use day smoker [facility] Sex Assigned At [facility] Cigarettes smoked 2020-05-10 2020-05-10 [facility] - current (pack per 00:00:00 00:00:00 [facility] Center day) - Reported Tobacco use and 2020-05-10 2020-05-10 Never used [facility] - exposure 00:00:00 00:00:00 [facility] Smoking Status Start Date Stop Date Source Current every day smoker 2020-05-10 00:00:00 [facility] Medications Ordered Filled Start Stop Current Ordering Indication Dosage Frequency Signature Comments Components Source Medication Medication Date Date Medication? Clinician (SIG) Name Name lisinopril- 2019-08 Yes 1{tbl} QD Take [address] hydroCHLORO 0-08 tablet by Jairon es - thiazide 12:32: mouth Medical (STORMY,Z 46 daily. Center ESTORETIC) 20-25 mg per tablet levothyroxi 2019-08 Yes 100ug Take [address] ne 0-08 mcg by Lulindsey - (SYNTHROID, 12:32: mouth Medic al LEVOTHROID) 46 Every Center 100 MCG morning on tablet an empty stomach. oxyCODONE 2019-08 Yes 20mg Take [address] 20 mg Tab 0-08 by mouth [facility] - 00:00: every 4 Medical 00 (four) Center hours as needed for Pain. Max Daily Amount: 120 mg tiZANidine 2019-08 Yes 4mg Take 1 [facility] (ZANAFLEX) 0-08 tablet (4 [facility] - 4 MG tablet 00:00: mg total) M edical 00 by mouth 4 Center (four) times daily as needed (muscle spasms). polyethylen 2019-08 Yes 17g Take [address] e glycol 0-08 by mouth [facility] - (GLYCOLAX) 00:00: daily as Med ical 17 gram 00 needed Center packet (Constipat ion). docusate 2019-08 Yes 100mg Q.5D Take [address] sodium 0-08 capsule [facility] - (COLACE) 00:00: (100 mg Medica l 100 MG 00 total) by Center capsule mouth 2 (two) times daily. oxyCODONE 2019-08 Yes 20mg Take [address] [facility] (OXYCONTIN) 0-08 tablet (20 Lynsey kes - 20 MG 12 hr 00:00: mg total) M edical tablet 00 by mouth Center every 12 (twelve) hours. Max Daily Amount: 40 mg gabapentin 2019-08 No 300mg [id number] Take [address] (NEURONTIN) 0-08 10-08 [id number] capsule [facility] - 300 MG 00:00: 23:59 3D (300 mg Medical capsule 00 :00 total) by Center mouth 3 (three) times daily. senna 2019-08 No 17.2mg QD Take [address] (SENOKOT) 0-08 10-08 tablets [facility] - 8.6 mg 00:00: 23:59 (17.2 mg Medica l tablet 00 :00 total) by Center mouth nightly. lidocaine 2019-08- No 1{patch Q24H Place [address] (LIDODERM) 0-08 07 } patch onto Lynsey kes - 5 % patch 00:00: 23:59 the skin Med ical 00 :00 daily for Center 30 days Remove & Discard patch within 12 hours or as directed by . traMADoL 2019-08- No 100mg Take 2 [facility] (ULTRAM) 50 0-08 10-18 tablets Luke s - mg tablet 00:00: 23:59 (100 mg Medi chris 00 :00 total) by Center mouth every 6 (six) hours as needed (for moderate pain) for up to 10 days. Max Daily Amount: 400 mg oxyCODONE 2019-08- No 20mg Take 1 [facility] (OXYCONTIN) 0-08 10-08 tablet (20 L ukes - 20 MG 12 hr 00:00: 00:00 mg total) Medical tablet 00 :00 by mouth Center every 12 (twelve) hours. Max Daily Amount: 40 mg Vital Signs Vital Name Observation Time Observation Value Comments Source Systolic blood 2020-05-11 08:28:00 127 mm[Hg] [facility] Diastolic blood 2020-05-11 08:28:00 78 mm[Hg] [facility] Heart rate 2020-05-11 08:28:00 62 /min [facility] Body temperature 2020-05-11 08:28:00 36.94 Faby [facility] Respiratory rate 2020-05-11 08:28:00 18 /min [facility] Oxygen saturation in 2020-05-11 08:28:00 93 /min [facility] Arterial blood by Medical Ce nter Pulse oximetry Body height 2020-05-06 20:44:00 165.1 cm [facility] Body weight 2020-05-06 20:44:00 64.864 kg [facility] BMI 2020-05-06 20:44:00 23.80 kg/m2 [facility] Procedures Procedure Date / Time Performed Performing Clinician Formerly [facility] e XR SPINE SCOLIOSIS STUDY 2020-07-07 13:07:00 August Campa [facility] XR LUMBAR SPINE 2 OR 3 2020-07-07 11:15:00 Marcy Musa Radha [facility] XR DXA BONE DENSITY 2020-07-07 11:15:00 Marcy Musa [facility] RHYTHM STRIP - SCAN 2020-05-12 13:02:19 Provider, Default [facility] TRANSFUSION SERVICE 2020-05-11 18:02:14 Provider, Default [facility] REPORT - SCAN [facility] CBC W/PLT COUNT & AUTO 2020-05-11 05:43:00 Joselin Wilson [facility] BASIC METABOLIC PANEL 2020-05-11 05:43:00 Joselin Wilson [facility] (7) [facility] CBC W/PLT COUNT & AUTO 2020-05-10 04:35:[address] [facility] - DIFFERENTIAL [facility] BASIC METABOLIC PANEL 2020-05-10 04:35:[address] [facility] - (7) Medical Center ABORH, MANUAL 2020-05-10 04:35:00 Candy Urena [facility] TRANSFUSION SERVICE 2020-05-08 18:01:47 Provider, Valdemar [facility] RE[facility] - SCAN Scanning [facility] XR SPINE THORACIC 2 2020-05-08 16:29:00 Kayla Parks [facility] - VIEWS [facility] BASIC METABOLIC PANEL 2020-05-08 04:08:00 Kayla Parks [facility] - (7) [facility] HEMOGLOBIN AND 2020-05-08 04:08:00 Kayla Parks [facility] - HEMATOCRIT [facility] LAMINECTOMY,THORACIC 2020-05-07 19:28:00 August Campa [facility] - W/FUSION [facility] PROCEDURE W/ C-ARM 2020-05-07 19:28:00 August Campa [facility] - [facility] MR THORACIC SPINE 2020-05-07 18:24:00 Kayla Parks [facility] - WITHOUT IV CONTRAST [facility] [place] FLUORO NON-SPECIFIC 2020-05-07 10:21:00 August Campa [facility] - UP TO 1 HOUR Medical Center TYPE AND SCREEN, 2020-05-07 04:59:00 Channing Moctezuma [facility] - AUTOMATED Medical Center CBC W/PLT COUNT & AUTO 2020-05-07 04:59:00 Channing Moctezuma [facility] t [place] - DIFFERENTIAL [facility] Center BASIC METABOLIC PANEL 2020-05-07 04:59:00 Channing Moctezuma [facility] - (7) [facility] PT/APTT 2020-05-07 04:59:00 Channing Moctezuma [facility] - [facility] SARS-COV2/RT-PCR ([facility] & 2020-05-07 00:00:00 Channing Moctezuma [facility] - REF LAB[facility]) Medical [place] Plan of Care Planned Activity Planned Date Details Comments Source Future Scheduled 2020-08-[address] [facility] - Test 00:00:00 (12+) [code = [facility] Center DEPRESSION SCREENING (12+)] Future Scheduled 2020-04-04 INFLUENZA VACCINE (#1) [facility] - Test 00:00:00 [code = INFLUENZA Medical Ce nter VACCINE (#1)] Future Scheduled [address] [facility] - Test 00:00:00 (procedure) [code = [facility] Center [id number]] Future Scheduled [address] Jairon es - Test 00:00:00 malignant neoplasm of Medica l Center cervix (procedure) [code = 061765851] Future Scheduled [address] [facility] - Test 00:00:00 0-64 YRS (1 of 1 - Medical C enter PPSV23) [code = PNEUMOCOCCAL VACCINE 0-64 YRS (1 of 1 - PPSV23)] Results Test Description Test Time Test Comments Results Result Sour e Comments RAD, SPINE, 2020-07-07 Reason for LUMBAR, 2 OR 3 13:39:00 Exam:->Burst VIEWS fracture of T12 vertebra [facility] - with delayed MEDICAL CENTERName: healing ,S/P MEFFLEY, ASIA lumbar spinal LYNISE : fusion,Post-op 1975 pain Sex: F FINAL REPORT EXAMINATION: RAD, SPINE, LUMBAR, 2 OR 3 VIEWS, RAD, SPINE, SCOLIOSIS STUDY, 2 OR 3 VIEWS INDICATION: Burst fracture of T12 vertebra with delayed healing, status post fusion of thoracic and lumbar spine COMPARISON: Thoracic spine radiograph 05/08/2020 DISCUSSION:Cervicot horacic junction is partially obscured on lateral views by overlying bones/soft tissues. Status post T10-L2 posterior spinal fusion without evidence of hardware loosening or failure.Unchanged severe height loss of T12 compression fracture deformity. No additional acute osseous abnormalities. Visualized vertebral body heights are well-maintained. No significant curvature in the coronal plane. Straightening of the cervical lordosis. No significant spondylolisthesis. No coronal or sagittal imbalance.Moderate degenerative disc changes at C5-C6 and C6-C7. Additional mild facet arthropathy of the inferior cervical and lumbar spines. No acute soft tissue abnormalities. Bilateral breast implants noted. IMPRESSION:Status post T10-L2 posterior spinal fusion without evidence of acute hardware complication. Unchanged vertebral body height loss of T12 compression fracture deformity. Multilevel degenerative changes as described above, greatest at the inferior cervical spine. Signed: Laurie Khan MDReport Verified Date/Time: 07/07/2020 13:39:36 Reading Location: [facility] Reading Room [address] [place] [address] , SPINE, 2020-07-07 Reason for SCOLIOSIS STUDY, 13:39:00 Exam:->BURST 2 OR 3 VIEWS FRACTURE OF T12 VERTEBRA [facility] - WITH DELAYED MEDICAL CENTERName: HEALING ASIA PACHECO [id number] LYNNE : for 1975 Exam:->S/P Sex: FUSION OF F THORACIC SPINE Z98.1Reason for Exam:->S/P FINAL REPORT LUMBAR SPINAL PATIENT ID: FUSION [id number] [id number] EXAMINATION: RAD, SPINE, LUMBAR, 2 OR 3 VIEWS, RAD, SPINE, SCOLIOSIS STUDY, 2 OR 3 VIEWS INDICATION: Burst fracture of T12 vertebra with delayed healing, status post fusion of thoracic and lumbar spine COMPARISON: Thoracic spine radiograph 05/08/2020 DISCUSSION:Cervicot horacic junction is partially obscured on lateral views by overlying bones/soft tissues. Status post T10-L2 posterior spinal fusion without evidence of hardware loosening or failure.Unchanged severe height loss of T12 compression fracture deformity. No additional acute osseous abnormalities. Visualized vertebral body heights are well-maintained. No significant curvature in the coronal plane. Straightening of the cervical lordosis. No significant spondylolisthesis. No coronal or sagittal imbalance.Moderate degenerative disc changes at C5-C6 and C6-C7. Additional mild facet arthropathy of the inferior cervical and lumbar spines. No acute soft tissue abnormalities. Bilateral breast implants noted. IMPRESSION:Status post T10-L2 posterior spinal fusion without evidence of acute hardware complication. Unchanged vertebral body height loss of T12 compression fracture deformity. Multilevel degenerative changes as described above, greatest at the inferior cervical spine. Signed: Laurie Khan MDReport Verified Date/Time: 07/07/2020 13:39:36 Reading Location: [facility] Reading Room [address] [place] [address] Spine, 2020-07-07 Interface, External [facility] Sc[facility]osis Study 13:39:00 Ris In - 07/07/2020 - Medical 1:41 PM CSTFINAL Center REPORT EXAMINATION: RAD, SPINE, LUMBAR, 2 OR 3 VIEWS, RAD, SPINE, SCOLIOSIS STUDY, 2 OR 3 VIEWS INDICATION: Burst fracture of T12 vertebra with delayed healing, status post fusion of thoracic and lumbar spine COMPARISON: Thoracic spine radiograph 05/08/2020 DISCUSSION:Cervicot horacic junction is partially obscured on lateral views by overlying bones/soft tissues. Status post T10-L2 posterior spinal fusion without evidence of hardware loosening or failure.Unchanged severe height loss of T12 compression fracture deformity. No additional acute osseous abnormalities. Visualized vertebral body heights are well-maintained. No significant curvature in the coronal plane. Straightening of the cervical lordosis. No significant spondylolisthesis. No coronal or sagittal imbalance.Moderate degenerative disc changes at C5-C6 and C6-C7. Additional mild facet arthropathy of the inferior cervical and lumbar spines. No acute soft tissue abnormalities. Bilateral breast implants noted. IMPRESSION:Status post T10-L2 posterior spinal fusion without evidence of acute hardware complication. Unchanged vertebral body height loss of T12 compression fracture deformity. Multilevel degenerative changes as described above, greatest at the inferior cervical spine. Signed: Laurie Khanort Verified Date/Time: 07/07/2020 13:39:36 Reading Location: [facility] Reading Room [address] [place] [address] spine lumbar 2 2020-07-07 Interface, External [facility] or 3 views 13:39:00 Ris In - 07/07/2020 - Med ical 1:41 PM CSTFINAL Center REPORT EXAMINATION: RAD, SPINE, LUMBAR, 2 OR 3 VIEWS, RAD, SPINE, SCOLIOSIS STUDY, 2 OR 3 VIEWS INDICATION: Burst fracture of T12 vertebra with delayed healing, status post fusion of thoracic and lumbar spine COMPARISON: Thoracic spine radiograph 05/08/2020 DISCUSSION:Cervicot horacic junction is partially obscured on lateral views by overlying bones/soft tissues. Status post T10-L2 posterior spinal fusion without evidence of hardware loosening or failure.Unchanged severe height loss of T12 compression fracture deformity. No additional acute osseous abnormalities. Visualized vertebral body heights are well-maintained. No significant curvature in the coronal plane. Straightening of the cervical lordosis. No significant spondylolisthesis. No coronal or sagittal imbalance.Moderate degenerative disc changes at C5-C6 and C6-C7. Additional mild facet arthropathy of the inferior cervical and lumbar spines. No acute soft tissue abnormalities. Bilateral breast implants noted. IMPRESSION:Status post T10-L2 posterior spinal fusion without evidence of acute hardware complication. Unchanged vertebral body height loss of T12 compression fracture deformity. Multilevel degenerative changes as described above, greatest at the inferior cervical spine. Signed: Laurie Khan Verified Date/Time: 07/07/2020 13:39:36 Reading Location: [facility] Reading Room [address] [place] [address] , BONE DENSITY 2020-07-07 Reason for STUDY 12:22:00 Exam:->Z98.1 S/P lumbar spinal [facility] : 1975 Sex: F FINAL REPORT EXAM: RAD, BONE DENSITY STUDY History: Status post lumbar spinal fusionComparison: None available DISCUSSION:Evaluati on of the left hip and left forearm was performed utilizing DEXA Hologic bone densitometer. The study is technically adequate.The patient's fracture risk is compared to an age-matched control.The patient denies prior surgery/fracture of the spine, hips or forearm. Left hip femoral neck bone mineral density: 0.772 g/cm2, T-score is -0.7, Z-score is -0.3. Left hip total bone mineral density: 0.888 g/cm2, T-score is -0.4, Z-score is -0.1. Left forearm distal one-third mineral density: 0.693 gm/cm2, T-score is 0, Z-score is 0.5. IMPRESSION: Bone mineralization by WHO Classification is Normal, the fracture risk is not increased. Signed: Laurie Khan Verified Date/Time: 07/07/2020 12:22:38 Reading Location: [facility] Reading Room [address] [place] [address] DXA Bone 2020-07-07 Interface, External [facility] Density Study 12:22:00 Ris In - 07/07/2020 - Medical 12:24 PM CSTFINAL Center REPORT EXAM: RAD, BONE DENSITY STUDY History: Status post lumbar spinal fusionComparison: None available DISCUSSION:Evaluati on of the left hip and left forearm was performed utilizing DEXA Hologic bone densitometer. The study is technically adequate.The patient's fracture risk is compared to an age-matched control.The patient denies prior surgery/fracture of the spine, hips or forearm. Left hip femoral neck bone mineral density: 0.772 g/cm2, T-score is -0.7, Z-score is -0.3. Left hip total bone mineral density: 0.888 g/cm2, T-score is -0.4, Z-score is -0.1. Left forearm distal one-third mineral density: 0.693 gm/cm2, T-score is 0, Z-score is 0.5. IMPRESSION: Bone mineralization by WHO Classification is Normal, the fracture risk is not increased. Signed: Laurie Khan Verified Date/Time: 07/07/2020 12:22:38 Reading Location: [facility] Reading Room [address] [place] [address] Basic Metabolic Panel 2020-05-11 07:41:00 Test Item Value Reference Range Interpretation Comme nts Sodium (test code = 131 meq/L 136-145 L 2951-2) Potassium (test code = 5.0 meq/L 3.5-5.1 2823-3) Chloride (test code = 99 meq/L 98-107 2075-0) CO2 (test code = 8-9) 25 meq/L 22-29 BUN (test code = 3094-0) 15 mg/dL 7-21 Creatinine (test code = 0.88 mg/dL 0.57-1.25 2160-0) Glucose (test code = 93 mg/dL 70-105 2345-7) Calcium (test code = 8.9 mg/dL 8.4-10.2 59217-9) EGFR (test code = 13671-6) 69 mL/min/1.73 sq m ESTIMATED GFR IS NOT ACCURATE CREATININE JEANCARLOS ENEDINA IN PREDICTING GLOMERULAR FILT RATION RATE. ESTIMATED GFR IS NOT APPLICAB LE FOR DIALYSIS PATIEN TS. RE (test code = RE) Bale Coverer ID - ANGELY M Lab Interpretation (test Abnormal code = 32665-1) [facility] [id number] 07:41:00 Test Item Value Reference Range Interpretation Comments SODIUM (BEAKER) 131 meq/L 136-145 L (test code = 381) POTASSIUM (BEAKER) 5.0 meq/L 3.5-5.1 (test code = 379) CHLORIDE (BEAKER) 99 meq/L 98-107 (test code = 382) CO2 (BEAKER) (test 25 meq/L 22-29 code = 355) BLOOD UREA NITROGEN 15 mg/dL 7-21 (BEAKER) (test code = 354) CREATININE (BEAKER) 0.88 mg/dL 0.57-1.25 (test code = 358) GLUCOSE RANDOM 93 mg/dL 70-105 (BEAKER) (test code = 652) CALCIUM (BEAKER) 8.9 mg/dL 8.4-10.2 (test code = 697) EGFR (BEAKER) (test 69 mL/min/1.73 ESTIMA LORRIE GFR IS code = 1092) sq m NOT ACCURATE CREATININE CLEARANCE IN PREDICTING GLOMERULAR FILTRATION RATE . ESTIMATED GFR I S NOT APPLICABLE FOR DIALYSIS PATIEN TS. Bale Coverer ID - ANGELY [facility] with platelet count + automated [id number] 06:53:00 Test Item Value Reference Range Interpretation Comments WBC (test code = 6690-2) 6.2 See_Comment [A utomated message] The system SEAT 4a generated this result transmitted ref erence range: 3.5 - 10 .5 K/L. The refe rence range was not u sed to interpret this result as normal/abnor mal. RBC (test code = 789-8) 2.79 See_Comment L [Au tomated message] The system SEAT 4a generated this result transmitted ref erence range: 3.93 - 5 .22 M/L. The refe rence range was not u sed to interpret this result as normal/abnor mal. MCHC (test code = 786-4) 29.9 See_Comment L [A utomated message] The system SEAT 4a generated this result transmitted ref erence range: 32.2 - 3 5.5 GM/DL. The refe rence range was not u sed to interpret this result as normal/abnor mal. Hematocrit (test code = 24.4 % 34.1-44.9 L 4544-3) MCV (test code = 787-2) 87.5 fL 79.4-94.8 MCH (test code = 785-6) 26.2 pg 25.6-32.2 RDW (test code = 788-0) 14.9 % 11.7-14.4 H Platelets (test code = 285 See_Comment [Aut omated message] 777-3) The system SEAT 4a generated this result transmitted ref erence range: 150 - 45 0 K/CU MM. The referen ce range was not u sed to interpret this result as normal/abnor mal. MPV (test code = 9.8 fL 9.4-12.3 82751-7) nRBC (test code = 413) 0 See_Comment [Aut omated message] The system SEAT 4a generated this result transmitted ref erence range: 0 - 0 /1 00 WBC. The refere nce range was not u sed to interpret this result as normal/abnor mal. % Neutros (test code = 64 % 429) % Lymphs (test code = 19 % 430) % Monos (test code = 13 % 431) % Eos (test code = 432) 3 % % Baso (test code = 437) 1 % # Neutros (test code = 3.96 See_Comment [Aut omated message] 670) The system SEAT 4a generated this result transmitted ref erence range: 1.56 - 6 .13 K/L. The refe rence range was not u sed to interpret this result as normal/abnor mal. # Lymphs (test code = 1.20 See_Comment [Auto mated message] 414) The system SEAT 4a generated this result transmitted ref erence range: 1.18 - 3 .74 K/L. The refe rence range was not u sed to interpret this result as normal/abnor mal. # Monos (test code = 0.81 See_Comment H [Autom ated message] 415) The system SEAT 4a generated this result transmitted ref erence range: 0.24 - 0 .36 K/L. The refe rence range was not u sed to interpret this result as normal/abnor mal. # Eos (test code = 416) 0.21 See_Comment [Au tomated message] The system SEAT 4a generated this result transmitted ref erence range: 0.04 - 0 .36 K/L. The refe rence range was not u sed to interpret this result as normal/abnor mal. # Baso (test code = 417) 0.03 See_Comment [A utomated message] The system SEAT 4a generated this result transmitted ref erence range: 0.01 - 0 .08 K/L. The refe rence range was not u sed to interpret this result as normal/abnor mal. Immature 0 % 0-1 Granulocytes-Relative (test code = 2801) Lab Interpretation (test Abnormal code = 76740-8) [facility] W/PLT COUNT & AUTO [id number] 06:53:00 Test Item Value Reference Range Interpretation Comments WHITE BLOOD CELL COUNT (BEAKER) 6.2 K/ L 3.5-10.5 (test code = 775) RED BLOOD CELL COUNT (BEAKER) 2.79 M/ L 3.93-5.22 L (test code = 761) HEMOGLOBIN (BEAKER) (test code = 7.3 GM/DL 11.2-15.7 L 410) HEMATOCRIT (BEAKER) (test code = 24.4 % 34.1-44.9 L 411) MEAN CORPUSCULAR VOLUME (BEAKER) 87.5 fL 79.4-94.8 (test code = 753) MEAN CORPUSCULAR HEMOGLOBIN 26.2 pg 25.6-32.2 (BEAKER) (test code = 751) MEAN CORPUSCULAR HEMOGLOBIN CONC 29.9 GM/DL 32.2-35.5 L (BEAKER) (test code = 752) RED CELL DISTRIBUTION WIDTH 14.9 % 11.7-14.4 H (BEAKER) (test code = 412) PLATELET COUNT (BEAKER) (test 285 K/CU MM 150-450 code = 756) MEAN PLATELET VOLUME (BEAKER) 9.8 fL 9.4-12.3 (test code = 754) NUCLEATED RED BLOOD CELLS 0 /100 WBC 0-0 (BEAKER) (test code = 413) NEUTROPHILS RELATIVE PERCENT 64 % (BEAKER) (test code = 429) LYMPHOCYTES RELATIVE PERCENT 19 % (BEAKER) (test code = 430) MONOCYTES RELATIVE PERCENT 13 % (BEAKER) (test code = 431) EOSINOPHILS RELATIVE PERCENT 3 % (BEAKER) (test code = 432) BASOPHILS RELATIVE PERCENT 1 % (BEAKER) (test code = 437) NEUTROPHILS ABSOLUTE COUNT 3.96 K/ L 1.56-6.13 (BEAKER) (test code = 670) LYMPHOCYTES ABSOLUTE COUNT 1.20 K/ L 1.18-3.74 (BEAKER) (test code = 414) MONOCYTES ABSOLUTE COUNT (BEAKER) 0.81 K/ L 0.24-0.36 H (test code = 415) EOSINOPHILS ABSOLUTE COUNT 0.21 K/ L 0.04-0.36 (BEAKER) (test code = 416) BASOPHILS ABSOLUTE COUNT (BEAKER) 0.03 K/ L 0.01-0.08 (test code = 417) IMMATURE GRANULOCYTES-RELATIVE 0 % 0-1 PERCENT (BEAKER) (test code = 2801) KATELYN, [id number] 07:09:00 Test Item Value Reference Range Interpretation Comments ABO Grouping (test code = 2588) O Rh Factor (test code = 2589) POS [facility] METABOLIC [id number] 06:29:00 Test Item Value Reference Range Interpretation [...] S NOT APPLICABLE FOR DIALYSIS PATIEN TS. Bale Coverer ID - ANGELY MCBC W/PLT COUNT & AUTO [id number] 05:48:00 Test Item Value Reference Range Interpretation [...] code = 2801) RAD, SPINE, THORACIC, 2 [id number] 22:12:00Reason for exam:->Standing thoracolumbar spine xray, (fusion [...] MDReport Verified Date/Time: 05/08/2020 22:12:16 Reading Location: [facility] C013 Consult Reading Room XR spine thoracic 2 [id number] 22:12:00Interface, External Ris In - 05/08/2020 10:14 [...] MDReport Verified Date/Time: 05/08/2020 22:12:16 Reading Location: [facility] B1 C013W Consult Reading [facility] [id number] 05:07:00 Test Item Value Reference Range Interpretation [...] S NOT APPLICABLE FOR DIALYSIS PATIEN TS. Bale Coverer ID - EDASIHemoglobin and [id number] 04:30:00 Test Item Value Reference Range Interpretation Comments Hemoglobin (test code 9.2 See_Comment L [Auto mated = 786-4) message] The system which generated this result transmit lorrie reference range : 11.2 - 15.7 GM/ DL. The reference range was not u sed to interpret th is result as normal/abnormal . Hematocrit (test code 29.7 % 34.1-44.9 L = 4544-3) RE (test code = RE) Bale Coverer ID - [id number] Lab Interpretation Abnormal (test code = 35324-4) [facility] [id number] 04:30:00 Test Item Value Reference Range Interpretation Comments HEMOGLOBIN (BEAKER) (test code = 9.2 GM/DL 11.2-15.7 L 410) HEMATOCRIT (BEAKER) (test code = 29.7 % 34.1-44.9 L 411) Bale Coverer ID - [id number], SPINE, THORACIC, WITHOUT [id number] 18:46:00 Unlisted Reason for Exam - Click [...] the anterior longitudinal ligament. Signed: Ashu Hanley MDReport Verified Date/Time: 05/07/2020 18:46:16 MR thoracic spine [...] the anterior longitudinal ligament. Signed: Ashu Hanley MDReport Verified Date/Time: 05/07/2020 18:46:16 [facility]2020-05-07 17:00:00 Test Item Value Reference Range Interpretation Comments SARS-COV2/RT-PCR Negative Not Detected, (test code = Negative, See 79976-8) external report for linked test SARS-COV-2 [facility] PERFORMING [facility] (test code = 75040-6) RE (test code = Negative result for [...] of the Act. Fact Sheet for Healthcare Providers:https://www.PivotLink/sites/default/f sherif/product/documents/F act_Sheet_HC_Providers_L gfi_DRKG-YuI-2.pdf Fact Sheet for Healthcare Patients:https://www.WealthTouch/sites/default/fi les/product/documents/Fa ct_Sheet_Patients_Lyra_S ARS-CoV-2.pdf Performing Laboratory:[place] [address] [address]/RT-PCR ([facility])2020-05-07 17:00:00 Test Item Value Reference Range Interpretation Comments SARS-COV2/RT-PCR (test Negative Not Detected, Negative, code = 8389706) See external report for linked test SARS-COV-2 PERFORMING LAB [facility] (test code = 9696887) Negative result for this test determines that [...] 564(g) of the Act.Fact Sheet for Healthcare Providers:https://www.Fabrus/sites/default/files/product/documents/Fact_Shee m_XE_Emwcgnkax_Wbhi_AFPI-WmD-3.pdfFact Sheet for Healthcare Patients:https://www.Fabrus/sites/default/files/product/ documents/Hsnj_Wcytw_Tqtvwmgv_Ikrw_QIBF-QbW-0.pdfPerforming Laboratory:[facility], [place] [address]WI, FLUORO, NON- SPECIFIC, UP TO 1 [id number] 10:21:00Reason for exam:->T10 TO L2 Fluoroscopic unit utilized for a procedure performed in the OR. No interpretation was requested. Refer to the operative report for findings. Refer to PACS for patient radiation dose information.FL fluoro non-specific up to 1 [id number] 10:21:00Interface, External Ris In - 05/07/2020 10:26 PM CDTFluoroscopic unit utilized for a procedure performed in the OR. No interpretation was requested. Refer to the operative report for findings. Referto PACS for patient radiation dose information.[facility] [id number] 06:52:00 Test Item Value Reference Range Interpretation [...] S NOT APPLICABLE FOR DIALYSIS PATIEN TS. Bale Coverer ID - [id number]/[id number] 06:01:00 Test Item Value Reference Interpretation Comments Range Protime (test code = 13.1 See_Comment [Autom ated 1192-2) message] The system which generated this result transmitted reference range : 11.9 - 14.2 seconds. The reference range was not used to interpret this result as normal/abnormal . INR (test code = 1.02 See_Comment [Automated 9661-6) message] The system which generated this result transmitted reference range : <=5.90. The reference range was not used to interpret this result as normal/abnormal . PTT (test code = 30.0 See_Comment [Automated 00712-5) message] The system which generated this result transmitted reference range : 22.5 - 36.0 seconds. The reference range was not used to interpret this result as normal/abnormal . RE (test code = Effective 12/30/2018: RE) PT Reference Range ChangeNew: 11.9-14.2 Previous: 11.7-14.7 RECOMMENDED COUMADIN/WARFARIN INR THERAPY RANGESSTANDARD DOSE: 2.0-3.0 Includes: PROPHYLAXIS for venous thrombosis, systemic embolization; TREATMENT for venous thrombosis and/or pulmonary embolus.HIGH RISK: Target INR is 2.5-3.5 for patients wiht mechanical heart valves. Lab Interpretation Normal (test code = 38339-5) [facility]/[id number] 06:01:00 Test Item Value Reference Range Interpretation [...] mechanical heart valves.CBC W/PLT COUNT & AUTO [id number] 05:53:00 Test Item Value Reference Range Interpretation [...] (test code = 2801) Type and screen, [id number] 05:52:00 Test Item Value Reference Range Interpretation Comments ABO/RH AUTOMATED (BEAKER) (test O POSITIVE code = 2260) Ab Scrn (test code = 890-4) NEGATIVE [facility]
--- NOTE | 2020-10-11 17:38 | RAD REPORT ---
EXAM DESCRIPTION: US - Transvaginal Study Probe - 10/11/2020 3:12 pm CLINICAL HISTORY: Pelvic pain COMPARISON: none FINDINGS: The uterus measures 8 x 5 x 6cm. A 4.3 centimeter isoechoic structure is present within th e uterus probably fibroid. Endometrial stripe measures 4 millimeters. Neither ovary visualized secondary to overlying bowel gas. Right and left adnexal unremarkable No significant free fluid is seen. IMPRESSION: 4.3 centimeter isoechoic structure in the uterus probably represents fibroid rather norm al myometrial tissue.
[2020-10-11] MEDS ORDERED: HYDROCODONE/APAP 10/325 TAB ONE (19:25)
--- NOTE | 2020-10-11 19:38 | RAD REPORT ---
EXAM DESCRIPTION: CT - Stone Protocol - 10/11/2020 6:59 pm CLINICAL HISTORY: Abdominal pain. COMPARISON: None. TECHNIQUE: Computed axial tomography of the abdomen pelvis was obtained without oral or IV contrast. Lack of IV and oral contrast limits evaluation of solid organs, bowel, and vessels. Coronal reformat virgil images were obtained and reviewed. All CT scans are performed using dose optimization technique as appropriate and may include automated exposure control or mA/KV adjustment according to patient size. FINDINGS: A renal calculus is not seen. An ureteral calculus is not noted. A bladder calculus is not present. The liver, spleen, pancreas and adrenals appear grossly normal There is no evidence of diverticulitis. Postsurgical changes involve spine. Marked nonacute compression fracture T12 vertebral body. Spondylo lysis L5. Slight anterior subluxation of L5 on S1. IMPRESSION: Negative for a genitourinary calculus
--- NOTE | 2020-10-11 19:44 | ER ---
Nurse's Notes [facility] Name: Tori Ramos Age: 45 yrs Sex: Female : 1975 Arrival Date: 10/11/2020 Time: 14:16 Bed 13 Private MD: Diagnosis: Leiomyoma of uterus Presentation: 10/11 14:25 Chief complaint: Patient states: i know i have a uterine fibroid because i had an tw2 ultrasound, it has been about 5 or 6 weeks, but pain well cramping started last week but today it started feeling like a knife is stabbing me in my vagina, spotting, lmp 3-6. Coronavirus screen: At this time, the client does not indicate any symptoms associated with coronavirus-19. Ebola Screen: Patient denies travel to an Ebola-affected area in the 21 days before illness onset. Initial Sepsis Screen: Does the patient meet any 2 criteria? No. Patient's initial sepsis screen is negative. Does the patient have a suspected source of infection? No. Patient's initial sepsis screen is negative. Risk Assessment: Do you want to hurt yourself or someone else? Patient reports no desire to harm self or others. Onset of symptoms was October 11, 2020. 14:25 Method Of Arrival: Ambulatory tw2 14:25 Acuity: GABRIELLE 3 tw2 Triage Assessment: 14:29 General: Appears in no apparent distress. slender, well groomed, Behavior is calm, tw2 cooperative, appropriate for age. Pain: Complains of pain in pelvis. OPERATIONS INTERN: 14:46 LMP 10/02/2020 tw2 Historical: - Allergies: 14:30 No Known Allergies; tw2 - Home Meds: 14:29 lisinopril-hydrochlorothiazide 20-25 mg oral tab 1 tab once daily [Active]; tramadol 50 tw2 mg Oral tab 1 tab every 4-6 hours [Active]; ferrous sulfate 325 mg (65 mg iron) Oral tab [Active]; levothyroxine 100 mcg tab 1 tab once daily [Active]; - PMHx: 14:29 Hypertension; Hypothyroidism; tw2 - PSHx: 14:29 open heart sx, 1975 leaky valves and fixed a hole; back sx, 2019; breast implants; tw2 - Immunization history:: Adult Immunizations. - Social history:: Smoking status: Patient reports the use of cigarette tobacco products, smokes one pack cigarettes per day. Screenin:05 Abuse screen: Denies threats or abuse. Denies injuries from another. Nutritional ca1 screening: No deficits noted. Tuberculosis screening: No symptoms or risk factors identified. Fall Risk None identified. Assessment: 18:05 General: Appears in no apparent distress. comfortable, Behavior is calm, cooperative, ca1 appropriate for age. Pain: Complains of pain in pelvis Pain currently is 8 out of 10 on a pain scale. Neuro: Level of Consciousness is awake, alert, obeys commands, Oriented to person, place, time, situation. : Urine is clear. Derm: Skin is intact, is healthy with good turgor, Skin is pink, warm \T\ dry. Musculoskeletal: Circulation, motion, and sensation intact. Capillary refill < 3 seconds. 19:12 Reassessment: Patient appears in no apparent distress at this time. Patient and/or sf family updated on plan of care and expected duration. Pain level reassessed. Patient is alert, oriented x 3, equal unlabored respirations, skin warm/dry/pink. Vital Signs: 14:25 BP 175 / 146; Pulse 86; Resp 18; Temp 97.9(O); Pulse Ox 100% on R/A; Weight 63.5 kg tw2 (R); Height 5 ft. 5 in. (165.10 cm); Pain 10/10; 14:46 BP 123 / 85; tw2 19:06 BP 112 / 83; Pulse 71; Resp 16 S; Pulse Ox 99% on R/A; ca1 19:09 Pain 7/10; sf 14:25 Body Mass Index 23.30 (63.50 kg, 165.10 cm) tw2 ED Course: 14:16 Patient arrived in ED. am2 14:27 Triage completed. tw2 14:29 Arm band placed on. tw2 14:31 Dinorah Castillo FNP-C [facility]. kb 14:31 Dominick Stovall MD is Attending Physician. kb 18:05 Patient has correct armband on for positive identification. Placed in gown. Bed in low ca1 position. Call light in reach. Side rails up X 1. Pulse ox on. NIBP on. Warm blanket given. 18:09 Martha Velazquez RN is Primary Nurse. ca1 19:11 CT Stone Protocol Sent. sf 19:11 Urine Dipstick--Ancillary (enter results) Sent. sf 19:11 Urine --Ancillary (enter results) Sent. sf 19:11 US Transvaginal Study (Probe) Sent. sf 19:56 No provider procedures requiring assistance completed. Patient did not have IV access sf during this emergency room visit. Administered Medications: 19:09 Drug: [place] 10 mg-325 mg 1 tabs Route: PO; sf Outcome: 19:43 Discharge ordered by . kalen 19:56 Discharged to home ambulatory. sf 19:56 Condition: stable 19:56 Discharge instructions given to patient, Instructed on discharge instructions, follow up and referral plans. medication usage, Demonstrated understanding of instructions, follow-up care, medications, Prescriptions given X 1. 19:59 Patient left the ED. sf Signatures: Dinorah Castillo, FUGITIVE INVESTIGATOR-C FUGITIVE INVESTIGATOR-CkJennifer Cleary RN RN tw2 Marium Iqbal am2 Martha Velazquez RN RN ca1 Gene Oliver RN RN sf Corrections: (The following items were deleted from the chart) 14:46 14:25 Chief complaint: Patient states: i know i have a uterine fibroid because i had an tw2 ultrasound, it has been about 5 or 6 weeks, but pain well cramping started last week but today it started feeling like a knife is stabbing me in my vagina, spotting, lmp 1-6, tw2
--- NOTE | 2020-10-11 19:44 | EDPHYS ---
Physician Documentation [facility] Name: Tori Ramos Age: 45 yrs Sex: Female : 1975 Arrival Date: 10/11/2020 Time: 14:16 Bed 13 Private MD: ED Physician Dominick Stovall HPI: 10/11 22:25 This 45 yrs old Female presents to ER via Ambulatory with complaints of kb Vaginal Pain. 22:25 The patient presents with pelvic pain, that is located in/on the groin. Onset: The kb symptoms/episode began/occurred last week, and became worse yesterday. Modifying factors: The symptoms are alleviated by nothing, the symptoms are aggravated by nothing. Associated signs and symptoms: The patient has no apparent associated signs or symptoms. Severity of symptoms: At their worst the symptoms were moderate, in the emergency department the symptoms are unchanged. The patient has not experienced similar symptoms in the past. The patient has not recently seen a physician. 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 - Social history:: Smoking status: Patient reports the use of cigarette tobacco products, smokes one pack cigarettes per day. ROS: 22:25 Constitutional: Negative for fever, chills, and weight loss, Cardiovascular: Negative kb for chest pain, palpitations, and edema, Respiratory: Negative for shortness of breath, cough, wheezing, and pleuritic chest pain, Abdomen/GI: Negative for abdominal pain, nausea, vomiting, diarrhea, and constipation, MS/Extremity: Negative for injury and deformity, Skin: Negative for injury, rash, and discoloration, Neuro: Negative for headache, weakness, numbness, tingling, and seizure. 22:25 : Positive for vaginal pain, suprapubic pain. Exam: 22:25 Constitutional: This is a well developed, well nourished patient who is awake, alert, kb and in no acute distress. Head/Face: Normocephalic, atraumatic. Cardiovascular: Regular rate and rhythm with a normal S1 and S2. No gallops, murmurs, or rubs. No pulse deficits. Respiratory: Lungs have equal breath sounds bilaterally, clear to auscultation. No rales, rhonchi or wheezes noted. No increased work of breathing, no retractions or nasal flaring. Abdomen/GI: Soft, non-tender, with normal bowel sounds. No distension. No guarding or rebound. No evidence of tenderness throughout. Skin: Warm, dry with normal turgor. Normal color with no rashes, no lesions, and no evidence of cellulitis. MS/ Extremity: Pulses equal, no cyanosis. Neurovascular intact. Full, normal range of motion. Neuro: Awake and alert, GCS 15, oriented to person, place, time, and situation. Cranial nerves II-XII grossly intact. Moves all extremities. Sensory grossly intact. Cerebellar exam normal. Normal gait. Vital Signs: 14:25 BP 175 / 146; Pulse 86; Resp 18; Temp 97.9(O); Pulse Ox 100% on R/A; Weight 63.5 kg tw2 (R); Height 5 ft. 5 in. (165.10 cm); Pain 10/10; 14:46 BP 123 / 85; tw2 19:06 BP 112 / 83; Pulse 71; Resp 16 S; Pulse Ox 99% on R/A; ca1 19:09 Pain 7/10; sf 14:25 Body Mass Index 23.30 (63.50 kg, 165.10 cm) tw2 MDM: 17:58 Patient medically screened. kb 22:24 Data reviewed: vital signs, nurses notes. Data interpreted: Pulse oximetry: on room air kb is 99 %. Interpretation: normal. Counseling: I had a detailed discussion with the patient and/or guardian regarding: the historical points, exam findings, and any diagnostic results supporting the discharge/admit diagnosis, lab results, radiology results, the need for outpatient follow up, an OB/Gyne specialist, to return to the emergency department if symptoms worsen or persist or if there are any questions or concerns that arise at home. 10/11 18:50 Order name: Urine Dipstick--Ancillary (enter results) 10/11 18:50 Order name: Urine --Ancillary (enter results) bd 10/11 14:31 Order name: US Transvaginal Study (Probe); Complete Time: 19:15 kb 10/11 17:38 Order name: US; Complete Time: 17:39 EDID 10/11 18:05 Order name: CT Stone Protocol; Complete Time: 19:15 kb 10/11 19:38 Order name: CT; Complete Time: 19:41 EDID 10/11 18:05 Order name: Urine Dipstick-Ancillary (obtain specimen); Complete Time: 18:43 kb Administered Medications: 19:09 Drug: [place] 10 mg-325 mg 1 tabs Route: PO; sf Disposition: 10/11/20 19:43 Discharged to Home. Impression: Leiomyoma of uterus. - Condition is Stable. - Discharge Instructions: Uterine Fibroids, Rzex-la-Bjai. - Prescriptions for Diclofenac Sodium 75 mg Oral Tablet, Delayed Release (E.C.) - take 1 tablet by ORAL route 2 times per day As needed; 30 tablet. - Medication Reconciliation Form, Thank You Letter, Antibiotic Education, Prescription Opioid Use form. - Follow up: Emergency Department; When: As needed; Reason: Worsening of condition. Follow up: Private Physician; When: 2 - 3 days; Reason: Recheck today's complaints, Continuance of care, Re-evaluation by your physician. Addendum: 10/13/2020 19:02 Co-signature as Attending Physician, Dominick Stovall MD. r n Signatures: Dispatcher [employer] [facility] Dinorah Castillo, SILK SCREEN FRAME ASSEMBLER-C SILK SCREEN FRAME ASSEMBLER-Ckb Dominick Stovall MD MD rn Jennifer Joyce RN RN tw2 Gene Oliver RN RN sf Corrections: (The following items were deleted from the chart) 10/11 19:59 19:43 10/11/2020 19:43 Discharged to Home. Impression: Leiomyoma of uterus. Condition sf is Stable. Forms are Medication Reconciliation Form, Thank You Letter, Antibiotic Education, Prescription Opioid Use. Follow up: Emergency Department; When: As needed; Reason: Worsening of condition. Follow up: Private Physician; When: 2 - 3 days; Reason: Recheck today's complaints, Continuance of care, Re-evaluation by your physician. kb
[2020-10-11 21:19] LABS: Urine Blood NEGATIVE (NEG); Urine Glucose TRACE (NEG); Urine Protein NEGATIVE (NEG); Urine Specific Gravity 1.025 (1.005-1.030)
[2020-10-11 23:40] VITALS: TEMP 97.9
[2020-10-11 23:42] VITALS: BP 112/83; O2SAT 99
== END 2020-10-11 19:59 | disposition home or self-care (01) ==
LOC: ER 14:15
DX: D25.9 Leiomyoma of uterus, unspecified (principal); F17.210 Nicotine dependence, cigarettes, uncomplicated; I10 Essential (primary) hypertension; E03.9 Hypothyroidism, unspecified
CPT/HCPCS: 74176; 76377; 76830; 81003; 81025; 99284

== ENCOUNTER 2022-03-26 09:34 | Emergency (ER) | payer OTHER, SELFPAY ==
--- OUTSIDE RECORDS SUMMARY | 2022-03-26 09:38 | XMS REPORT | Continuity of Care Document ---
:1975 Author Organization [facility] t Address [address] [place] [address] Care Team Providers Name Role Phone PCP, PATIENT DOES NOT HAVE A Primary Care Physician UnavailCARLYN Helm Attending Clinician Unavailable JONO MONTANA Attending Clinician Unavailable JONO MONTANA Attending Clinician Unavailable FLORES SINGLETON Attending Clinician Unavailable RICHARDSON DEUTSCH Attending Clinician Unavailable CARLYN MENDIOLA Admitting Clinician Unavailable BLESSING MONTANAIADELIA Admitting Clinician Unavailable KEE BARNES Admitting Clinician Unavailable Payers Payer Name Policy Type Policy Number Effective Date Expiration Date [place] [id number] 2020 00:00:00 SHAREE KIDD FROM [id number] 2021 [facility] 00:00:00 Problems Condition Condition Condition Status Onset Resolution Last Treating Co mments Source Name Details Category Date Date Treatment Clinician Date Hypertensi Hypertensi Disease Active U nivers on, on, 12-03 ity [place] 00 [place] 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 NO KNOWN Allergy Active [facility] Social History Social Habit Start Date Stop Date Quantity Comments Source Exposure to 2021-11-23 2021-12-03 Not sure [facility] SARS-CoV-2 (event) 00:00:00 02:07:00 Medica l Branch Sex Assigned At [birth year] [facility] 00:00:00 00:00:00 Medical Branch Smoking Status Start Date Stop Date Source Unknown if ever smoked [facility] Medications Ordered Filled Start Stop Current Ordering Indication Dosage Frequency Signature Comments Components Source Medication Medication Date Date Medication? Clinician (SIG) Name Name metoclopram No 10mg 10 mg, Uni vers norma HCl 12-03 Slow IV ity of (REGLAN) 08:00: 07:13 Push, [place] injection 00 :00 ONCE, 1 Medical 10 mg dose, On Branch Fri12/03/21 at 0300, MARIA ALEJANDRA diphenhydrA No 25mg 25 mg, Uni vers MINE 12-03 Slow IV ity of (BENADRYL) 08:00: 07:12 Push, [place] injection 00 :00 ONCE, 1 Medical 25 mg dose, On Branch Fri12/03/21 at 0300, STAT Vital Signs Vital Name Observation Time Observation Value Comments Source HEIGHT 2020-05-06 00:00:00 165.1 cm WEIGHT 2020-05-06 00:00:00 64.864 kg Systolic blood 2021-12-03 09:35:00 128 mm[Hg] Univer sity of pressure [facility] Diastolic blood 2021-12-03 09:35:00 79 mm[Hg] Unive rsity of pressure [facility] Heart rate 2021-12-03 09:35:00 78 [facility] Body temperature 2021-12-03 09:35:00 37 Faby [facility] [place] Respiratory rate 2021-12-03 09:35:00 17 /min [facility] Oxygen saturation in 2021-12-03 09:35:00 94 /min [facility] Arterial blood by [facility] Pulse oximetry Branch Body height 2021-12-03 06:12:00 167.6 cm [facility] Body weight 2021-12-03 06:12:00 68.04 kg [facility] BMI 2021-12-03 06:12:00 24.21 kg/m2 [facility] HEIGHT 2020-05-06 00:00:00 165.1 cm WEIGHT 2020-05-06 00:00:00 64.864 kg Procedures Procedure Date / Time Performing Clinician Source Performed CT HEAD WO CONTRAST 2021-12-03 07:35:07 [facility]o [place] [facility] POCT TEST 2021-12-03 07:05:00 [facility]o [facility] URINE DRUG (IMMUNOASSAY) 2021-12-03 06:42:00 Jono [place] [facility] SCREEN URINALYSIS 2021-12-03 06:42:00 Jono [place] [facility] MAGNESIUM 2021-12-03 06:40:00 [facility] TROPONIN I 2021-12-03 06:40:00 Rumaakcasey [facility] COMP. METABOLIC PANEL 2021-12-03 06:40:00 Jono [place] [facility] ([id number]) [facility] ETHANOL 2021-12-03 06:40:00 [facility] CBC WITH DIFF 2021-12-03 06:40:00 [facility] N-TERMINAL PRO-BNP 2021-12-03 06:40:00 Jono [place] [facility] CONSENT/REFUSAL FOR 2021-12-03 06:05:45 Doctor Unassigned, No Un [facility] DIAGNOSIS AND TREATMENT Name [facility] Encounters Start End Encounter Admission Attending Care Care Encounter Source Date/Time Date/Time Type Type Clinicians Facility Department ID 2020-05-06 Inpatient ER SHEILA MENDIOLA Neurosurger [id number] [facility] 19:37:00 CARLYN y 2021-12-03 2021-12-03 Emergency X JONO MONTANA [facility] ERT [id number] Univers 01:07:00 05:05:00 [facility] 2021-12-03 2021-12-03 Emergency MICHELLE [place] [id number] Univers 01:07:00 05:05:00 Jono [facility] [id number] it y of CLEAR [id number] Natalie COBIAN [id number] [address] ([facility]) 2020-07-07 2020-07-07 Outpatient SHEILA SINGLETON [facility] [id number] SLE 00:00:00 00:00:00 FLORES 2020-07-07 2020-07-07 Outpatient SHEILA SINGLETON [facility] [id number] SLE 00:00:00 00:00:00 FLORES 2020-07-07 2020-07-07 Outpatient RICHARDSON DEUTSCH [facility] [id number] SLE 00:00:00 00:00:00 Results Test Description Test Time Test Comments Results Result Comments Source TROPONIN I 2021-12-03 07:20:41 Test Item Value Reference Range Interpretation Comme nts TROPONIN I (test code = 0.005 ng/mL See_Comment [Au tomated message] The [id number]) system which ge nerated this result tra nsmitted reference range : <=0.034. The reference r jose l was not used to int erpret this result as normal/abnormal . RE (test code = RE) Reference (Normal) Range (defined by the 99th percentile reference limit): <= 0.034 ng/mL Note: Cardiac troponin begins to rise 3-4 hours after the onset of ischemia. Repeat in 4-6 hours if the sample was drawn within 3-4 hours of the onset of the symptom and found normal. Diagnosis of myocardial injury is made with acute changes in cTn concentrations with at least one serial sample above the 99th percentile upper reference limit (URL), taken together with the patient's clinical presentation. Biotin has been reported to cause a negative bias, interpret results relative to patient's use of biotin. Lab Interpretation Normal (test code = 59065-5) [id number] 07:20:41 Test Item Value Reference Range Interpretation Comments NT-proBNP (test code 169 pg/mL See_Comment H [Autom ated = [id number]) message] The system which generated this result transmitted reference range : <=125. The reference range was not used to interpret this result as normal/abnormal . RE (test code = RE) Biotin has been reported to cause a negative bias, interpret results relative to patient's use of biotin. Lab Interpretation Abnormal (test code = 71493-9) [facility]22[facility] 07:14:10 Test Item Value Reference Range Interpretation Comments ALCOHOL (test code = <10 mg/dL 4795221029) RE (test code = Toxic Greater than or RE) equal to 80 mg/dL. NOTE: Whole blood values are approximately 10% to 15% lower than serum and plasma. [facility]OLIC PAN[facility] ([id number])2021-12-03 07:08:59 Test Item Value Reference Range Interpretation Comments NA (test code = 131 mmol/L 135-145 L 2886001994) K (test code = 3.5 mmol/L 3.5-5.0 5759269542) CL (test code = 94 mmol/L 98-108 L 3478670299) CO2 TOTAL (test code = 27 mmol/L 23-31 3595053027) AGAP (test code = 2-16 0032868130) BUN (test code = 11 mg/dL 7-23 2771677183) GLUCOSE (test code = 113 mg/dL 70-110 H 9184697505) CREATININE (test code = 0.70 mg/dL 0.50-1.04 1237280467) TOTAL BILI (test code = 0.5 mg/dL 0.1-1.4 6550115441) CALCIUM (test code = 9.2 mg/dL 8.6-10.6 8143847870) T PROTEIN (test code = 7.6 g/dL 6.3-8.2 4730454684) ALBUMIN (test code = 4.4 g/dL 3.5-5.0 0695292313) ALK PHOS (test code = 67 U/L 34-122 5956284446) ALTv (test code = 22 U/L 5-35 1742-6) AST(SGOT) (test code = 33 U/L 13-40 2067047602) eGFR (test code = mL/min/1.73m2 5337514054) RE (test code = RE) Association of Glomerular Filtration Rate (GFR) and Staging of Kidney Disease* + --+ --+ ------+| GFR (mL/min/1.73 m2) ?| With Kidney Damage ?| ?Without Kidney Damage+ --------+ --------+ +| ?>90 ?| ?Stage one ?| ? Normal ?+ ---+ ---+ -------+| ?60-89 ?| ?Stage two ?| ? Decreased GFR ? + --+ --+ ------+| ?30-59 ?| ?Stage three ?| ? Stage three ? + --+ --+ ------+| ?15-29 ?| ?Stage four ? | ? Stage four ?+ ---+ ---+ -------+| ?<15 (or dialysis) ? ?| ?Stage five ? | ? Stage five ?+ ---+ ---+ -------+ *Each stage assumes the associated GFR level has been in effect for at least three months. ?Stages 1 to 5, with or without kidney disease, indicate chronic kidney disease. Notes: Determination of stages one and two (with eGFR >59mL/min/1.73 m2) requires estimation of kidney damage for at least three months as defined by structural or functional abnormalities of the kidney, manifested by either:Pathological abnormalities or Markers of kidney damage (including abnormalities in the composition of the blood or urine or abnormalities in imaging tests). Lab Interpretation Abnormal (test code = 03216-8) [facility]2022-05-02 07:08:59 Test Item Value Reference Range Interpretation Comments MAGNESIUM (test code = 3972519920) 1.8 mg/dL 1.7-2.4 Lab Interpretation (test code = Normal 58079-8) [facility] [id number] 07:05:00 Test Item Value Reference Range Interpretation Comments POCT PREG (test code = 1605) negative On board controls acceptable with present C Line (test code = 3574) POCT PREG LOT # (test code = 3575) [id number] POCT PREG TEST DATE (test 05/03/2023 code = 3576) Lab Interpretation (test code = Normal 44653-7) [facility] WITH [id number] 06:57:17 Test Item Value Reference Range Interpretation Comments WBC (test code = See_Comment [Automated 6690-2) message] The sy stem which generated this result transmitted reference range : 4.30 - 11.10 10*3/?L. The reference range was not used to interpret this result as normal/abnormal . RBC (test code = See_Comment [Automated 789-8) message] The sy stem which generated this result transmitted reference range : 3.93 - 5.25 10*6/?L. The reference range was not used to interpret this result as normal/abnormal . HGB (test code = 12.9 g/dL 11.6-15.0 718-7) HCT (test code = 38.2 % 35.7-45.2 4544-3) MCV (test code = 89.9 fL 80.6-95.5 787-2) MCH (test code = 30.4 pg 25.9-32.8 785-6) MCHC (test code = 33.8 g/dL 31.6-35.1 786-4) RDW-SD (test code = 42.8 fL 39.0-49.9 24004-5) RDW-CV (test code = 13.2 % 12.0-15.5 788-0) PLT (test code = See_Comment H [Automated 777-3) message] The sy stem which generated this result transmitted reference range : 166 - 358 10*3/ ?L. The reference r jose l was not used to interpret this result as normal/abnormal . MPV (test code = 9.6 fL 9.5-12.9 74095-1) NRBC/100 WBC (test See_Comment [Automat ed code = 8595591817) message] The system which generated this result transmitted reference range : 0.0 - 10.0 /100 WBCs. The refer ence range was not u sed to interpret th is result as normal/abnormal . NRBC x10^3 (test code <0.01 See_Comment [Auto mated = 5693151573) message] The s ystem which generated this result transmitted reference range : 10*3/?L. The reference range was not used to interpret this result as normal/abnormal . GRAN MAT (NEUT) % 61.5 % (test code = 770-8) IMM GRAN % (test code 0.20 % = 6629682615) LYMPH % (test code = 23.6 % 736-9) MONO % (test code = 12.4 % 5905-5) EOS % (test code = 1.8 % 713-8) BASO % (test code = 0.5 % 706-2) GRAN MAT x10^3(ANC) 5.10 10*3/uL 1.88-7.09 (test code = 9483375828) IMM GRAN x10^3 (test <0.03 0.00-0.06 code = 3947259820) LYMPH x10^3 (test code 1.96 10*3/uL 1.32-3.29 = 731-0) MONO x10^3 (test code 1.03 10*3/uL 0.33-0.92 H = 742-7) EOS x10^3 (test code = 0.15 10*3/uL 0.03-0.39 711-2) BASO x10^3 (test code 0.04 10*3/uL 0.01-0.07 = 704-7) Lab Interpretation Abnormal (test code = 29539-6) [facility] Hospital[facility], LUMBAR, 2 OR 3 [id number] 13:39:00Reason for Exam:->Burst fracture of T12 vertebra with delayed healing ,S/P lumbar spinal fusion,Post-op pain [facility] : 1975 Sex: FFINAL REPORT EXAMINATION: RAD, SPINE, LUMBAR, 2 OR 3 VIEWS, RAD, SPINE, SCOLIOSISSTUDY, 2 OR 3 VIEWS INDICATION: Burst fracture of T12 vertebra with delayed healing, status post fusion of thoracic and lumbar spine COMPARISON: Thoracic spine radiograph 05/08/2020 DISCUSSION:Cervicothoracic junction is partially obscured on lateral views [...] MDReport Verified Date/Time: 07/07/2020 13:39:36 Reading Location: [facility] Reading Room [address] [place] [address] RAD, SPINE, SCOLIOSIS STUDY, 2 OR 3 [id number] 13:39:00Reason for Exam:->BURST FRACTURE OF T12 VERTEBRA WITH DELAYED HEALING S22.081GReason for Exam:->S/P FUSION OF THORACIC SPINE Z98.1Reason for Exam:->S/P LUMBAR SPINAL FUSION Z98.1[facility] : 1975 Sex: FFINAL REPORT EXAMINATION: RAD, SPINE, LUMBAR, 2 OR 3 VIEWS, RAD, SPINE, SCOLIOSIS STUDY, 2 OR 3 VIEWS INDICATION: Burst fracture of T12 vertebra with delayed healing, status post fusion of thoracic and lumbar spine COMPARISON: Thoracic spine radiograph 05/08/2020 DISCUSSION:Cervicothoracic junction is partially obscured on lateral views by overlying bones/soft tissues. Status post T10-L2 posterior spinal fusion without evidence of hardware loosening or failure.Unchanged severe height loss of T12 compression fracture deformity. No additional acute osseous abnormalities. Visualizedvertebral body heights are well-maintained. No significant curvature in the coronal plane. Straightening of the cervical lordosis. No significant spondylolisthesis. No coronal or sagittal imbalance.Moderate degenerative disc changes at C5-C6 and C6-C7. Additional mild facet arthropathy of the inferiorcervical and lumbar spines. No acute soft tissue abnormalities. Bilateral breast implants noted. IMPRESSION:Status post T10-L2 posterior spinal fusion without evidence of acute hardware complication. Unchanged vertebral body height loss of T12 compression fracture deformity. Multilevel degenerative changes as described above, greatest at the inferior cervical spine. Signed: Laurie Khan MDReport Verified Date/Time: 07/07/2020 13:39:36 Reading Location: [facility] Reading Room [address] [place] [address] RAD, BONE DENSITY [id number] 12:22:00Reason for Exam:->Z98.1 S/P lumbar spinal fusion [facility] 1975 Sex: FFINAL REPORT EXAM: RAD, BONE DENSITY STUDY History: Status post lumbar spinal fusionComparison: None available DISCUSSION:Evaluation of the left hip and left forearm was performed utilizing DEXA Hologic bone densitometer. The study is technically adequate.The patient's fracture riskis compared to an age- matched control.The patient denies prior surgery/fracture of the spine, hips or forearm. Left hip femoral neck bone mineral density: 0.772 g/cm2, T-score is - 0.7, Z-score is -0.3.Left hip total bone mineral density: 0.888 g/cm2, T-score is -0.4, Z-score is -0.1. Left forearm distal one-third mineral density: 0.693 gm/cm2, T-score is 0, Z-score is 0.5. IMPRESSION: Bone mineralization by WHO Classification is Normal, the fracture risk is not increased. Signed: Laurie Khan MDReport Verified Date/Time: 07/07/2020 12:22:38 Reading Location: [facility] Reading Room [address] [place] [address] [facility] METABOLIC [id number] 07:41:00 Test Item Value Reference Range Interpretation [...] S NOT APPLICABLE FOR DIALYSIS PATIEN TS. Insole Stiffener ID - ANGELY MCBC W/PLT COUNT & AUTO [id number] 06:53:00 Test Item Value Reference Range Interpretation [...] 0-1 PERCENT (BEAKER) (test code = 2801) BASIC METABOLIC [id number] 06:29:00 Test Item Value Reference Range Interpretation [...] S NOT APPLICABLE FOR DIALYSIS PATIEN TS. Insole Stiffener ID - ANGELY MCBC W/PLT COUNT & AUTO [id number] 05:48:00 Test Item Value Reference Range Interpretation [...] code = 2801) RAD, SPINE, THORACIC, 2 [id number] 22:12:00Reason for exam:->Standing thoracolumbar spine xray, (fusion [...] MDReport Verified Date/Time: 05/08/2020 22:12:16 Reading Location: [address] Consult Reading Room BASI METABOLIC [id number] 05:07:00 Test Item Value Reference Range Interpretation [...] S NOT APPLICABLE FOR DIALYSIS PATIEN TS. Insole Stiffener ID - EDASIHEMOGLOBIN AND [id number] 04:30:00 Test Item Value Reference Range Interpretation Comments HEMOGLOBIN (BEAKER) (test code = 9.2 GM/DL 11.2-15.7 L 410) HEMATOCRIT (BEAKER) (test code = 29.7 % 34.1-44.9 L 411) Insole Stiffener ID - [id number], SPINE, THORACIC, WITHOUT [id number] 18:46:00 Unlisted Reason for Exam - Click Yes and Enter Reason Below->NoT 12 traumatic fractureFINAL REPORT MR Thoracic spine without contrast. CLINICAL HISTORY: T-spine canal stenosis TECHNIQUE: MRI of the thoracic spine utilizing sagittal T1, T2, STIR, and axial T1, T2-weighted images. COMPARISON: None FINDINGS:Significant motion artifact on multiple sequences limits evalu ation particularly on the STIR sequence. Chronic height [...] body. Acute compression fracture of the T12 vertebral body with focal kyphosis and 8 mm retropulsion of the posterior fracture fragments into the canal resulting in moderate spinal canal stenosis. There is likely disruption of the anterior longitudinal ligament. Signed: Ashu Hanley [facility] Verified Date/Time: 05/07/2020 18:46:16 SARS-COV2/RT-PCR ([facility]) 2020-05-07 17:00:00 Test Item Value Reference Range Interpretation Comments SARS-COV2/RT-PCR (test Negative Not Detected, Negative, code = 8682766) See external report for linked test SARS-COV-2 PERFORMING LAB [facility] JOSH (test code = 7318859) Negative result for this test determines that [...] individuals suspected of COVID-19 by their healthcare provider.This test [...] justifying the authorization of the emergency use ofin vitro diagnostic tests for detection and/or diagnosis of COVID-19 is terminated under Section 564(b)(2) of the Act or the EUA is revoked under Section 564(g) of the Act.Fact Sheet for Healthcare Prov iders:https://www.DaisyBill/sites/default/files/product/documents/Fact_Sheet_HC _Deyumpjid_Jriv_QJGQ-NtV-3.pdfFact Sheet for Healthcare Patients:https://www.DaisyBill/sites/default/files/product/docume nts/Uxfa_Akunf_Kiukexjf_Uhhr_ZTEB-KiJ-8.pdfPerforming Laboratory:[facility], [place] [address]GQ, FLUORO, NON-SPECIFIC, UP TO 1 [id number] 10:21:00Reason for exam:->T10 TO W7Kccibmkfpqhs unit utilized for a procedure performed in the OR. No interpretation was requested. Refer to the operative report for findings. Refer to PACS for patient radiation dose information.BASIC METABOLIC [id number] 06:52:00 Test Item Value Reference Range Interpretation [...] S NOT APPLICABLE FOR DIALYSIS PATIEN TS. Insole Stiffener ID - [id number] 06:01:00 Test Item Value Reference Range Interpretation [...] is 2.5-3.5 for patients wiht mechanical heart valves.CBC W/PLT COUNT & AUTO [id number] 05:53:00 Test Item Value Reference Range Interpretation [...] % 0-1 PERCENT (BEAKER) (test code = 7221)"
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
[2022-03-26] MEDS ORDERED: MORPHINE 4 MG/ML SYR ONE (10:35)
[2022-03-26] MEDS ORDERED: ONDANSETRON 4 MG (ODT) TAB ONE (10:35)
[2022-03-26] MEDS ORDERED: LIDOCAINE 4% PATCH ONE (10:35)
[2022-03-26] MEDS ORDERED: CYCLOBENZAPRINE 10 MG TAB ONE (11:07)
[2022-03-26] MEDS ORDERED: KETOROLAC 30 MG/ML INJ ONE (11:08)
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
[2022-03-26 12:50] VITALS: TEMP 97.4; O2SAT 100
[2022-03-26 12:54] VITALS: BP 115/75
== END 2022-03-26 12:17 | disposition home or self-care (01) ==
LOC: ER 09:34
DX: S16.1XXA Strain of muscle, fascia and tendon at neck level, initial encounter (principal); R10.30 Lower abdominal pain, unspecified; V49.40XA Driver injured in collision with unspecified motor vehicles in traffic accident, initial encounter; I10 Essential (primary) hypertension; F17.210 Nicotine dependence, cigarettes, uncomplicated
CPT/HCPCS: 72125; 74176; Q0162; J2001

== ENCOUNTER 2022-08-10 19:27 | Emergency (ER) | payer SELFPAY ==
--- OUTSIDE RECORDS SUMMARY | 2022-08-10 19:31 | XMS REPORT | Continuity of Care Document ---
:1975 Author Organization [facility] t Address [address] [place] [address] Care Team Providers Name Role Phone PCP, PATIENT DOES NOT HAVE A Primary Care Physician Unavaila CARLYN Mathews Attending Clinician Unavailable JONO MONTANA Attending Clinician Unavailable JONO MONTANA Attending Clinician Unavailable FLORES SINGLETON Attending Clinician Unavailable RICHARDSON DEUTSCH Attending Clinician Unavailable CARLYN MENDIOLA Admitting Clinician Unavailable JONO MONTANA Admitting Clinician Unavailable KEE BARNES Admitting Clinician Unavailable Payers Payer Name Policy Type Policy Number Effective Date Expiration Date Lata KIDD CLAIRTON [id number] 2020 00:00:00 SHAREE KIDD FROM [id number] 2021 [facility] 00:00:00 Problems Condition Condition Condition Status Onset [...] unspecifie d headache d headache type type Intractabl Intractabl Disease Active 2019-[address] [facility] 00 [facility] Hypothyroi Hypothyroi Disease Active 2019-[address] dism dism 0-04 [facility] Carrie Hypertensi Hypertensi Disease Active 2019-[address] on on 0-04 [facility] 00 [facility] Smoking Smoking Disease Active 2019-[address] [facility] 00 Carrie T12 burst T12 burst Disease Active 2019-[address] [facility] fracture fracture 0-03 [facility] 00:[facility]: [facility] 00 Carrie Allergies, Adverse Reactions, Alerts Allergy Allergy Status Severity Reaction(s) Onset Inactive Treating Comm ents Source Name Type Date Date Clinician NO KNOWN Drug Active [facility] ALLERGIE Class ity [facility] NO KNOWN Allergy [facility] Social History Social Habit Start Date Stop Date Quantity Comments Source History of tobacco Current every [facility] use day smoker [facility] Exposure to 2021-11-23 2021-12-03 Not sure [facility] SARS-CoV-2 (event) 00:00:00 02:07:00 [facility] Cigarettes smoked 2020-05-06 2020-05-06 [facility] current (pack per 00:00:00 00:00:00 [facility] Center day) - Reported Tobacco use and 2020-05-06 2020-05-06 Never used [facility] exposure 00:00:00 00:00:[address] [facility] Sex Ass[birth year] [facility] 00:00:00 00:00:[address] [facility] Smoking Status Start Date Stop Date Source Unknown if ever smoked [facility] Current every day smoker 2020-05-06 00:00:00 [facility] Medications Ordered Filled Start Stop Current Ordering Indication Dosage Frequency Signature Comments Components Source Medication Medication Date Date Medication? Clinician (SIG) Name Name metoclopram 2021- No 10mg 10 mg, Uni vers norma HCl 12-03 Slow IV ity of (REGLAN) 08:00: 07:13 [place], [place] injection 00 :00 ONCE, 1 Medical 10 mg dose, [place] 12/03/21 at 0300, MARIA ALEJANDRA diphenhydrA 0 2021- No 25mg 25 mg, Uni vers MINE 12-03 Slow IV ity of (BENADRYL) 08:00: 07:12 Push, [place] injection 00 :00 ONCE, 1 Medical 25 mg dose, [place] Fri12/03/21 at 0300, STAT lisinopril- 2019-08 Yes 1{tbl} QD Take [address] hydroCHLORO 0-08 tablet by Jairon es thiazide 12:32: mouth Medical (PRINZIDE,Z 46 daily. Center ESTORETIC) 20-25 mg per tablet levothyroxi 2019-08 Yes 100ug Take [address] ne 0-08 mcg by [facility] (SYNTHROID, 12:32: mouth Medic al LEVOTHROID) 46 Every Center 100 MCG morning on tablet an empty stomach. oxyCODONE 2019-08 Yes 20mg Take [address] 20 mg Tab 0-08 by mouth [facility] 00:00: every 4 Medical 00 (four) Center hours as needed for Pain. Max Daily Amount: 120 mg tiZANidine 2019-08 Yes 4mg Take 1 [facility] (ZANAFLEX) 0-08 tablet (4 Luke s 4 MG tablet 00:00: mg total) M edical 00 by mouth 4 Center (four) times daily as needed (muscle spasms). polyethylen 2019-08 Yes 17g Take [address] e glycol 0-08 by mouth [facility] (GLYCOLAX) 00:00: daily as Med ical 17 gram 00 needed Center packet (Constipat ion). docusate 2019-08 Yes 100mg Q.5D Take [address] sodium 0-08 capsule [facility] (COLACE) 00:00: (100 mg Medica l 100 MG 00 total) by Center capsule mouth 2 (two) times daily. oxyCODONE 2019-08 Yes 20mg Take [address] [facility] (OXYCONTIN) 0-08 tablet (20 Lynsey kes 20 MG 12 hr 00:00: mg total) M edical tablet 00 by mouth Center every 12 (twelve) hours. Max Daily Amount: 40 mg Vital Signs Vital Name Observation Time Observation Value Comments Source HEIGHT 2020-05-06 00:00:00 165.1 cm WEIGHT 2020-05-06 00:00:00 64.864 kg Systolic blood 2021-12-03 09:35:00 128 mm[Hg] [facility] Diastolic blood 2021-12-03 09:35:00 79 mm[Hg] [facility] 2021-12-03 09:35:00 78 /min [facility] Body temperature 2021-12-03 09:35:00 37 [facility] Respiratory rate 2021-12-03 09:35:00 17 /min [facility] Oxygen saturation in 2021-12-03 09:35:00 94 /min [facility] blood by [facility] Pulse oximetry [place] Body height 2021-12-03 06:12:00 167.6 cm [facility] Body weight 2021-12-03 06:12:00 68.04 kg [facility] BMI 2021-12-03 06:12:00 24.21 kg/m2 [facility] HEIGHT 2020-05-06 00:00:00 165.1 cm WEIGHT 2020-05-06 00:00:00 64.864 kg Procedures Procedure Date / Time Performing Clinician Source Performed CT HEAD WO CONTRAST 2021-12-03 07:35:07 Jono Montana [facility] POCT TEST 2021-12-03 07:05:00 Jono Montana [facility] URINE DRUG (IMMUNOASSAY) 2021-12-03 06:42:00 Jono Montana [facility] DRUG [facility] SCREEN URINALYSIS 2021-12-03 06:42:00 Jono Montana [facility] MAGNESIUM 2021-12-03 06:40:00 Jono Montana [facility] TROPONIN I 2021-12-03 06:40:00 Jono Montana [facility] COMP. METABOLIC PANEL 2021-12-03 06:40:00 Jono Montana [facility] ([id number]) Medical Branch ETHANOL 2021-12-03 06:40:00 Jono Montana [facility] CBC WITH DIFF 2021-12-03 06:40:00 Jono Montana [facility] N-TERMINAL PRO-BNP 2021-12-03 06:40:00 Jono Montana [facility] CONSENT/REFUSAL FOR 2021-12-03 06:05:45 Doctor Unassigned, No Un [facility] DIAGNOSIS AND TREATMENT Name [facility] Plan of Care Planned Activity Planned Date Details Comments Source Future Scheduled 2022-04-04 INFLUENZA VACCINE (#1) [facility] Test 00:00:00 [code = INFLUENZA Medical Ce nter VACCINE (#1)] Future Scheduled 2021-08-[address] [facility] Test 00:00:00 (12+) [code = Medical Center DEPRESSION SCREENING (12+)] Future Scheduled 2021-05-[address] [facility] Test 00:00:00 Counseling and Medical Cente r Screening (12+) [code = Tobacco Cessation Counseling and Screening (12+)] Future Scheduled 2020 Lipid panel (procedure) [facility] Test 00:00:00 [code = 15267572] Medical Ce nter Future Scheduled 1996 Screening for malignant [facility] Test 00:00:00 neoplasm of cervix Medical C enter (procedure) [code = 064333230] Future Scheduled 1994 DTAP/TDAP/TD VACCINES [facility] Test 00:00:00 (1 - Tdap) [code = Medical C enter DTAP/TDAP/TD VACCINES (1 - Tdap)] Future Scheduled 1993 HEPATITIS C SCREENING [facility] Test 00:00:00 [code = HEPATITIS C Medical Center SCREENING] Future Scheduled [address] [facility] Test 00:00:00 0-64 YRS (1 - PCV) Medical C enter [code = PNEUMOCOCCAL VACCINE 0-64 YRS (1 - PCV)] Future Scheduled 1975 COVID-19 VACCINE (#1) [facility] Test 00:00:00 [code = COVID-[address] VACCINE (#1)] Future Scheduled 1975 CT Colonography (combo) [facility] Test 00:00:00 [code = CT Colonography [facility] (combo)] Future Scheduled 1975 Screening for malignant [facility] Test 00:00:00 neoplasm of colon Medical Ce nter (procedure) [code = 976956304] Future Scheduled 1975 Screening for malignant [facility] Test 00:00:00 neoplasm of colon Medical Ce nter (procedure) [code = 547067106] Future Scheduled 1975 Screening for malignant [facility] Test 00:00:00 neoplasm of colon Medical Ce nter (procedure) [code = 157986704] Future Scheduled 1975 Screening for malignant [facility] Test 00:00:00 neoplasm of colon Medical Ce nter (procedure) [code = 401831306] Future Scheduled 1975 Sigmoidoscopy [code = [facility] Test 00:00[facility]00 [facility] End Encounter Admission Attending Care Care Encounter Source Date/Time Date/Time Type Type Clinicians Facility Department ID 2020-05-06 Inpatient ER MAURY [facility] Neurosurger [id number] [facility] 19:37:00 CARLYN y 2021-12-03 2021-12-03 Emergency X LISHAJONO ALARCON [facility] ERT [id number] Univers 01:07:00 05:05:00 SANG BLESSINGEDITHDianne [facility] 2021-12-03 2021-12-03 Emergency Rumajeet [facility] [id number] Univers 01:07:00 05:05:00 [facility] [id number] it y [facility] [id number] [facility] [id number] [address] (CLC) 2020-07-07 2020-07-07 Outpatient SHEILA SINGLETON [facility] [id number] [facility] 00:00:00 00:00:00 FLORES 2020-07-07 2020-07-07 Outpatient SHEILA SINGLETON [facility] [id number] [facility] 00:00:00 00:00:00 FLORES 2020-07-07 2020-07-07 Outpatient RICHARDSON DEUTSCH [facility] [id number] [facility] 00:00:00 00:00:00 Results Test Description Test Time Test Comments Results Result Comments Source TROPONIN I 2021-12-03 07:20:41 Test Item Value Reference Range Interpretation Comme nts TROPONIN I (test code = 0.005 ng/mL See_Comment [Au tomated message] The 7999195198) system which ge nerated this result tra [...] biotin. Lab Interpretation Normal (test code = 58275-4) [facility] [id number] 07:20:41 Test Item Value Reference Range Interpretation Comments NT-proBNP (test code 169 pg/mL See_Comment H [Autom ated = 6365082995) message] The system which generated this result transmitted reference range : <=125. The reference range was not used to interpret this result as normal/abnormal . RE (test code = RE) Biotin has been reported to cause a negative bias, interpret results relative to patient's use of biotin. Lab Interpretation Abnormal (test code = 42607-9) [facility]2022-[facility] 07:14:10 Test Item Value Reference Range Interpretation Comments ALCOHOL (test code = <10 mg/dL 8698086714) RE (test code = Toxic Greater than or RE) equal to 80 mg/dL. NOTE: Whole blood values are approximately 10% to 15% lower than serum and plasma. [facility] METABOLIC PANEL (02138)2021-12-03 07:08:59 Test Item Value Reference Range Interpretation Comments NA (test code = 131 mmol/L 135-145 L 5033740587) K (test code = 3.5 mmol/L 3.5-5.0 5501025182) CL (test code = 94 mmol/L 98-108 L 6021392302) CO2 TOTAL (test code = 27 mmol/L 23-31 9619999905) AGAP (test code = 2-16 8513267942) BUN (test code = 11 mg/dL 7-23 7960647716) GLUCOSE (test code = 113 mg/dL 70-110 H 6374814282) CREATININE (test code = 0.70 mg/dL 0.50-1.04 3467331913) TOTAL BILI (test code = 0.5 mg/dL 0.1-1.4 7604866747) CALCIUM (test code = 9.2 mg/dL 8.6-10.6 7893192365) T PROTEIN (test code = 7.6 g/dL 6.3-8.2 7052427426) ALBUMIN (test code = 4.4 g/dL 3.5-5.0 3248813433) ALK PHOS (test code = 67 U/L 34-122 7761535027) ALTv (test code = 22 U/L 5-35 1742-6) AST(SGOT) (test code = 33 U/L 13-40 7848618514) eGFR (test code = mL/min/1.73m2 5450960664) RE (test code = RE) Association of [...] tests). Lab Interpretation Abnormal (test code = 93845-4) [facility]2022-[facility]-02 07:08:59 Test Item Value Reference Range Interpretation Comments MAGNESIUM (test code = 4423155226) 1.8 mg/dL 1.7-2.4 Lab Interpretation (test code = Normal 01653-0) [facility] [id number] 07:05:00 Test Item Value Reference Range Interpretation Comments POCT PREG (test code = 1605) negative On board controls acceptable with present C Line (test code = 3574) POCT PREG LOT # (test code = 3575) [id number] POCT PREG TEST DATE (test 05/03/2023 code = 3576) Lab Interpretation (test code = Normal 82757-5) [facility] NorthwestCB WITH [id number] 06:57:17 Test Item Value Reference Range Interpretation Comments WBC (test code = See_Comment [Automated 4697-2) message] The sy stem which generated this result transmitted reference range : 4.30 - 11.10 10*3/?L. The reference range was not used to interpret this result as normal/abnormal . RBC (test code = See_Comment [Automated 475-8) message] The sy stem which generated this [...] RDW-SD (test code = 42.8 fL 39.0-49.9 83983-0) RDW-CV (test code = 13.2 % 12.0-15.5 788-0) PLT (test code = See_Comment H [Automated 777-3) message] The sy stem which generated this result transmitted reference range : 166 - 358 10*3/ ?L. The reference r jose l was not used to interpret this result as normal/abnormal . MPV (test code = 9.6 fL 9.5-12.9 96755-7) NRBC/100 WBC (test See_Comment [Automat ed code = 6858435743) message] The system which generated this result transmitted reference range : 0.0 - 10.0 /100 WBCs. The refer ence range was not u sed to interpret th is result as normal/abnormal . NRBC x10^3 (test code <0.01 See_Comment [Auto mated = 8582811319) message] The s ystem which generated this result transmitted reference range : 10*3/?L. The reference range was not used to interpret this result as normal/abnormal . GRAN MAT (NEUT) % 61.5 % (test code = 770-8) IMM GRAN % (test code 0.20 % = 2091101610) LYMPH % (test code = 23.6 % 736-9) MONO % (test code = 12.4 % 5905-5) EOS % (test code = 1.8 % 713-8) BASO % (test code = 0.5 % 706-2) GRAN MAT x10^3(ANC) 5.10 10*3/uL 1.88-7.09 (test code = 2946898135) IMM GRAN x10^3 (test <0.03 0.00-0.06 code = 6444087104) LYMPH x10^3 (test code 1.96 10*3/uL 1.32-3.29 = 731-0) MONO x10^3 (test code 1.03 10*3/uL 0.33-0.92 H = 742-7) EOS x10^3 (test code = 0.15 10*3/uL 0.03-0.39 711-2) BASO x10^3 (test code 0.04 10*3/uL 0.01-0.07 = 704-7) Lab Interpretation Abnormal (test code = 09132-6) [facility], SPINE, LUMBAR, 2 OR 3 [id number] 13:39:00Reason for Exam:->Burst fracture of T12 vertebra with delayed healing ,S/P lumbar spinal fusion,[facility]-op pain [facility] 1975 Sex: FFINAL [...] MDReport Verified Date/Time: 07/07/2020 13:39:36 Reading Location: [facility] Reading Room [address] [place] [address] RAD, SPINE, SCOLIOSIS STUDY, 2 OR 3 [id number] 13:39:00Reason for Exam:->BURST FRACTURE OF T12 VERTEBRA WITH DELAYED HEALING S22.081GReason for Exam:->S/P FUSION OF THORACIC SPINE Z98.1Reason for Exam:->S/P LUMBAR SPINAL FUSION Z98.1[facility] : 1975 Sex: FFINAL [...] MDReport Verified Date/Time: 07/07/2020 13:39:36 Reading Location: [facility] Reading Room [address] [place] [address] RAD, BONE DENSITY [id number] 12:22:00Reason for Exam:->Z98.1 S/P lumbar spinal fusion [facility] 1975 Sex: FFINAL [...] fracture risk is not increased. Signed: Laurie Khaneport Verified Date/Time: 07/07/2020 12:22:38 Reading Location: [facility] Reading Room [address] [place] [address] BASIC METABOLIC [id number] 07:41:00 Test Item Value Reference Range Interpretation [...] S NOT APPLICABLE FOR DIALYSIS PATIEN TS. Skein Inspector ID - ANGELY MCBC W/PLT COUNT & AUTO [id number] 06:53:00 Test Item Value Reference Range Interpretation [...] (BEAKER) (test code = 2801) BASIC METABOLIC [id number] 06:29:00 Test Item Value Reference Range Interpretation [...] S NOT APPLICABLE FOR DIALYSIS PATIEN TS. Skein Inspector ID - ANGELY MCBC W/PLT COUNT & AUTO [id number] 05:48:00 Test Item Value Reference Range Interpretation [...] code = 2801) RAD, SPINE, THORACIC, 2 [id number] 22:12:00Reason for exam:->Standing thoracolumbar spine xray, (fusion [...] MDReport Verified Date/Time: 05/08/2020 22:12:16 Reading Location: [address] Consult Reading Room BASI METABOLIC [id number] 05:07:00 Test Item Value Reference Range Interpretation [...] S NOT APPLICABLE FOR DIALYSIS PATIEN TS. Skein Inspector ID - EDASIHEMOGLOBIN AND [id number] 04:30:00 Test Item Value Reference Range Interpretation Comments HEMOGLOBIN (BEAKER) (test code = 9.2 GM/DL 11.2-15.7 L 410) HEMATOCRIT (BEAKER) (test code = 29.7 % 34.1-44.9 L 411) Skein Inspector ID - [id number], SPINE, THORACIC, WITHOUT [id number] 18:46:00 Unlisted Reason for Exam - Click [...] Ashu Hanley MDReport Verified Date/Time: 05/07/2020 18:46:16 SARS-COV2/RT-PCR ([facility]) 2020-05-07 17:00:00 Test Item Value Reference Range Interpretation Comments SARS-COV2/RT-PCR (test Negative Not Detected, Negative, code = 2243888) See external report for linked test SARS-COV-[address]ING [address] [facility] (test code = 5402181) Negative result for this test determines that [...] of the Act.Fact Sheet for Healthcare Prov iders:https://www.[employer]/sites/default/files/product/documents/Fact_Sheet_HC _Fjvfularq_Xlyu_PACX-FbK-3.pdfFact Sheet for Healthcare Patients:https://www.[employer]/sites/default/files/product/docume nts/Njxi_Vdqnf_Ygxjsytu_Kcqz_RTDC-MoT-5.pdfPerforming Laboratory:[facility], [place] [address]ML, FLUORO, NON-SPECIFIC, UP TO 1 [id number] 10:21:00Reason for exam:->T10 TO F6Hmzamfbyaarp unit utilized for a procedure performed in the OR. No interpretation was requested. Refer to the operative report for findings. Refer to PACS for patient radiation dose information.BASIC METABOLIC [id number] 06:52:00 Test Item Value Reference Range Interpretation [...] S NOT APPLICABLE FOR DIALYSIS PATIEN TS. Skein Inspector ID - [id number] 06:01:00 Test Item Value Reference Range Interpretation [...] mechanical heart valves.CBC W/PLT COUNT & AUTO [id number] 05:53:00 Test Item Value Reference Range Interpretation [...] % 0-1 PERCENT (BEAKER) (test code = 2801)"
[2022-08-10] MEDS ORDERED: LIDOCAINE 1% MPF 5 ML VIAL ONE (20:02)
[2022-08-10] MEDS ORDERED: TDAP (DIPHTH,PERTUSS(ACELL),TET VAC) 0.5 ML VIAL IMVAC ONE (20:36)
--- NOTE | 2022-08-10 21:39 | RAD REPORT ---
EXAM DESCRIPTION: RAD - Hand Right 3 View - 08/10/2022 9:32 pm CLINICAL HISTORY: laceration COMPARISON: No comparisons FINDINGS/IMPRESSION: No acute fracture. No malalignment. No significant focal degenerative changes. No radiopaque foreign body.
--- NOTE | 2022-08-10 21:40 | RAD REPORT ---
EXAM DESCRIPTION: RAD - Hand Left 3 View - 08/10/2022 9:32 pm CLINICAL HISTORY: FB remove COMPARISON: No comparisons FINDINGS/IMPRESSION: No acute fracture. No malalignment. No significant focal degenerative changes. No radiopaque foreign body
--- NOTE | 2022-08-10 21:47 | ER ---
Nurse's Notes [facility] Name: Tori Rios Age: 47 yrs Sex: Female : 1975 Arrival Date: 08/10/2022 Time: 19:42 Bed 10 Private MD: Diagnosis: Foreign body to left 2nd digit;Laceration of right 2nd digit Presentation: 08/10 19:43 Chief complaint: Patient states: I cut my hand on glass and I don't want to talk about kb3 it. Right index finger noted to be bleeding profusely. Pt refusing to wrap hand in towels provided. Pt continues to shake her hand and sling blood all over the floor and brewer. Wrapped pt's hand with gauze and Kerlix. Pt unwrapped the gauze and reported that no one had wrapped it. Pt also has a toilet bowl chain hook through her left index finger that she is attempting to pull out. Advised pt not to remove the hook but that the physician will numb the site and remove safely. Per EMS, pt has been drinking heavily today and her spouse is en route. Pt refusing vital signs. Coronavirus screen: Vaccine status: Patient reports being unvaccinated. Client denies travel out of the [place] in the last 14 days. Ebola Screen: Patient negative for fever greater than or equal to 101.5 degrees Fahrenheit, and additional compatible Ebola Virus Disease symptoms Patient denies exposure to infectious person. Patient denies travel to an Ebola-affected area in the 21 days before illness onset. Initial Sepsis Screen: Does the patient meet any 2 criteria? No. Patient's initial sepsis screen is negative. Does the patient have a suspected source of infection? No. Patient's initial sepsis screen is negative. Risk Assessment: Do you want to hurt yourself or someone else? Patient reports no desire to harm self or others. Onset of symptoms is unknown. 19:43 Method Of Arrival: EMS: [facility] kb3 19:43 Acuity: GABRIELLE 3 kb3 Triage Assessment: 19:53 General: Appears in no apparent distress. Behavior is agitated, inappropriate for age, kb3 uncooperative, Smells of alcohol. Pain: Complains of pain in right hand and left hand Pain does not radiate. Injury Description: Laceration moderate bleeding noted at this time. A dressing was applied. 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 Last tetanus immunization: unknown. - Social history:: Smoking status: unknown. Screenin:11 [facility] ED Fall Risk Assessment (Adult) History of falling in the last 3 months, kb3 including since admission No falls in past 3 months (0 pts) Confusion or Disorientation No (0 pts) Intoxicated or Sedated Yes (3 pts) Impaired Gait No (0 pts) Mobility Assist Device Used No (0 pt) Altered Elimination No (0 pt) Score/Fall Risk Level 3 or more points = High Risk Oriented to surroundings, Maintained a safe environment, Educated pt \T\ family on fall prevention, incl call for assistance when getting out of bed, Assessed \T\ reinforced patient's understanding of fall precautions, Provided non-skid footwear, Hourly rounding (assess needs \T\ fall precautionary measures) done, Used ambulatory aids as needed (educated on \T\ assisted with), Used gait belt as appropriate Implemented a Fall Risk Plan of Care, Offered frequent toileting (1:1 observation), Remained with patient while ambulating. Abuse screen: Denies threats or abuse. Denies injuries from another. Nutritional screening: No deficits noted. Tuberculosis screening: No symptoms or risk factors identified. Assessment: 20:14 General: Spoke with pt's spouse who reported that he will not be picking her up upon kb3 discharge due to safety concerns and that she should be instructed to call a friend for transportation when she is ready. Charge nurse notified. 21:32 General: Pt attempted to call a sister for transportation home but was unable to kb3 remember her phone number. Pt gave this RN verbal consent to contact a mutual friend or her spouse to aid in finding available transportation. Spoke with a mutual friend and to patient spouse who reported he would call and arrange taxi service to [place] pick[place] at hospital and transport pt home when she is discharged. Advised we are waiting on X-ray results for discharge. Pt updated. 22:08 General: Spoke with mutual friend to notify that pt has been discharged and is ready kb3 for the taxi to transport her home. Awaiting taxi. PT updated . 22:30 Reassessment: Patient is alert, oriented x 3, equal unlabored respirations, skin bb warm/dry/pink. pt assisted to exit via wheelchair to awaiting taxi. Vital Signs: 22:10 BP 123 / 75; Pulse 78; Resp 20; Temp 98; Pulse Ox 96% ; Weight 68.04 kg; Height 5 ft. 7 kb3 in. (170.18 cm); Pain 0/10; 22:10 Body Mass Index 23.49 (68.04 kg, 170.18 cm) kb3 ED Course: 19:42 Patient arrived in ED. as 19:43 Carmen Garcia, RN is Primary Nurse. kb3 19:45 Bianka Deluna MD is Attending Physician. sd2 19:52 Triage completed. kb3 19:53 Arm band placed on in room. kb3 20:27 Assist provider with laceration repair on right hand that was 2.5 cm. or less using bb sutures. Set up tray. Performed by Bianka Deluna MD Patient tolerated well. 21:34 XRAY Hand LEFT 3 View In Process Unspecified. EDMS 21:34 XRAY Hand RIGHT 3 View In Process Unspecified. EDMS 22:11 Patient has correct armband on for positive identification. Bed in low position. Call kb3 light in reach. Side rails up X2. Pillow given. 22:11 Patient did not have IV access during this emergency room visit. 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 Exp: kb3 02/15/2023. Lot #: [id number]. } Route: IM; Site: left deltoid; 22:12 Follow up: Response: No adverse reaction kb3 Medication: 22:11 VIS not applicable for this client. Vaccine Information Statement (VIS) provided today. kb3 Questions and/or concerns addressed. VIS edition date: March 09, 2021. Outcome: 21:47 Discharge ordered by MD. baltazar 22:31 Patient left the ED. keyonna Addendum: 08/13/2022 11:08 Addendum: Other Pt called stating that she lost her RX. Called in Cephalexin to s s [facility] of choice, [facility]. Signatures: Dispatcher [employer] EDPauline Curtis Brenda, RN RN bb Smirch, Shelby, RN RN ss Dunlop, Stephanie, MD MD sd2 Carmen Garcia RN RN kb3
--- NOTE | 2022-08-10 21:47 | EDPHYS ---
Physician Documentation [facility] Name: Tori Rios Age: 47 yrs Sex: Female : 1975 Arrival Date: 08/10/2022 Time: 19:42 Bed 10 Private MD: ED Physician Bianka Deluna HPI: 08/10 20:23 This 47 yrs old Female presents to ER via EMS with complaints of Hand Injury. sd2 20:23 47-year-old female presents via EMS with chief complaint of hand injury. She reports sd2 she was trying to fix her toilet when the chain came off and went through her finger on her left hand. She also put a finger on her right hand which came in contact with some glass and is actively bleeding upon arrival. The patient has also been drinking alcohol and appears intoxicated per EMS. Patient is uncooperative with staff and reports an unknown last tetanus shot.. 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 Last tetanus immunization: unknown. - Social history:: Smoking status: unknown. ROS: 20:23 Constitutional: Negative for fever, chills, and weight loss, Eyes: Negative for injury, sd2 pain, redness, and discharge, Cardiovascular: Negative for chest pain, palpitations, and edema, Respiratory: Negative for shortness of breath, cough, wheezing. 20:23 MS/extremity: Positive for injury or acute deformity, laceration, foreign body. 20:23 Skin: Positive for laceration(s), Negative for rash, swelling. Exam: 20:23 Constitutional: This is a well developed, well nourished patient who is awake, alert, sd2 and in no acute distress. Head/Face: Normocephalic, atraumatic. Eyes: EOMI, normal conjunctiva bilaterally Chest/axilla: Normal chest wall appearance and motion. Nontender with no deformity. Cardiovascular: Regular rate and rhythm with a normal S1 and S2. No gallops, murmurs, or rubs. 2+ distal pulses. Respiratory: Lungs have equal breath sounds bilaterally, clear to auscultation and percussion. No rales, rhonchi or wheezes noted. No increased work of breathing, no retractions or nasal flaring. Skin: Warm, dry with normal turgor. Normal color with no rashes, no lesions, and no evidence of cellulitis. Skin avulsion noted to dorsal aspect of R 2nd digit at the PIP joint, FROM intact, bleeding controlled at time of my exam, no signs of tendon injury MS/ Extremity: Pulses equal, no cyanosis. Neurovascular intact. Full, normal range of motion. Ambulatory without difficulty. Pt with metal FB and chain noted to be present in the L 2nd fingertip Vital Signs: 22:10 BP 123 / 75; Pulse 78; Resp 20; Temp 98; Pulse Ox 96% ; Weight 68.04 kg; Height 5 ft. 7 kb3 in. (170.18 cm); Pain 0/10; 22:10 Body Mass Index 23.49 (68.04 kg, 170.18 cm) kb3 Procedures: 20:23 Foreign Body Removal: a piece of metal, from the left left hand, by Pliers and wire sd2 cutters were used to cut off the curved tip of the metal FB and then the FB was pulled out and removed from the insertion point. Bleeding controlled. No significant pain to the area. FROM intact. Good capillary refill. . Dressinx4s were used to dress the wound, The patient tolerated the removal well. Laceration: 20:23 Wound Repair of 3cm ( 1.2in ) subcutaneous laceration to left hand. Skin/tissue flap sd2 noted.. Hemostasis noted.. Distal neuro/vascular/tendon intact. Anesthesia: Wound infiltrated with 1 mls of 1% lidocaine. Wound prep: Moderate cleansing, Wound irrigation. Skin closed with 3 6-0 Prolene using simple sutures and sterile technique. Dressed with 4x4's. Patient tolerated well. MDM: 19:45 Patient medically screened. sd2 20:23 Differential diagnosis: fracture, FB, contusion, vascular injury, tendon injury among sd2 others. Data reviewed: vital signs, nurses notes, EMS record. Counseling: I had a detailed discussion with the patient and/or guardian regarding: the historical points, exam findings, and any diagnostic results supporting the discharge/admit diagnosis, the need for outpatient follow up, to return to the emergency department if symptoms worsen or persist or if there are any questions or concerns that arise at home. 21:42 Data reviewed: radiologic studies. Counseling: I had a detailed discussion with the sd2 patient and/or guardian regarding: radiology results. ED course: Imaging reviewed with no signs of retained FB or fracture. Pt comfortable with plan for discharge and outpatient follow up. Verbalizes understanding of discharge plan and strict return precautions. Will place on abx as precaution. . 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 Exp: kb3 02/15/2023. Lot #: [id number]. } Route: IM; Site: left deltoid; 22:12 Follow up: Response: No adverse reaction kb3 Disposition Summary: 08/10/22 21:47 Discharge Ordered Location: Home sd2 Problem: new sd2 Symptoms: have improved sd2 Condition: Stable sd2 Diagnosis - Foreign body to left 2nd digit sd2 - Laceration of right 2nd digit sd2 Followup: sd2 - With: Private Physician - When: 2 - 3 days - Reason: Recheck today's complaints, Continuance of care, Re-evaluation by your physician Followup: sd2 - With: Emergency Department - When: 1 week - Reason: Recheck today's complaints, Continuance of care, Re-evaluation by your physician Discharge Instructions: - Discharge Summary Sheet sd2 - Laceration Care, Adult sd2 - Hand or Foot Foreign Body, Adult sd2 Forms: - Medication Reconciliation Form sd2 - Thank You Letter sd2 - Antibiotic Education sd2 - Prescription Opioid Use sd2 Prescriptions: - Cephalexin 500 mg Oral Capsule - take 1 capsule by ORAL route every 6 hours for 10 days; 40 capsule; Refills: 0, sd2 Product Selection Permitted Signatures: Dispatcher [employer] Marilia Duque RN RN bb Bianka Deluna MD MD sd2 Carmen Garcia RN RN kb3
== END 2022-08-10 22:31 | disposition home or self-care (01) ==
LOC: ER 19:27
PROC: 0HQGXZZ Repair Left Hand Skin, External Approach (ICD-10-PCS; principal; 2022-08-10)
DX: S61.221A Laceration with foreign body of left index finger without damage to nail, initial encounter (principal); Z23 Encounter for immunization
CPT/HCPCS: 90471; 99284; J2001

== ENCOUNTER → 2023-09-01 | Emergency (ER) | payer SELFPAY ==
[~2023-09-01] MED LIST: ALBUTEROL 2.5 MG/3 ML NEB SOL ONE; HYDROCODONE/CHLORPHEN 5 ML/OSYR ONE; IPRATROPIUM BROM 0.5MG/2.5ML ONE; dexAMETHasone 10 MG/ML VIAL ONE
--- NOTE | 2023-09-01 11:17 | RAD REPORT ---
EXAM DESCRIPTION: Ulysses Cordova (2 Views)09/01/2023 10:47 am CLINICAL HISTORY: Cough COMPARISON: None FINDINGS: Calcified bilateral breast implants Postsurgical changes lower thoracic/ lumbar spine The lungs appear clear of acute infiltrate. The heart is normal size IMPRESSION: No acute abnormalities displayed
--- NOTE | 2023-09-01 11:22 | ER ---
Nurse's Notes [facility] Name: Tori Rios Age: 48 yrs Sex: Female : 1975 Arrival Date: 09/01/2023 Time: 09:37 Bed 11 Private MD: Diagnosis: Acute bronchitis, unspecified Presentation: 09/01 09:56 Chief complaint: Patient states: she has had a persistent cough for approx 2 weeks. ap3 patient reports pain with cough. Coronavirus screen: At this time, the client does not indicate any symptoms associated with coronavirus-19. Ebola Screen: No symptoms or risks identified at this time. Initial Sepsis Screen: Does the patient meet any 2 criteria? No. Patient's initial sepsis screen is negative. Does the patient have a suspected source of infection? No. Patient's initial sepsis screen is negative. Risk Assessment: Do you want to hurt yourself or someone else? Patient reports no desire to harm self or others. Onset of symptoms is unknown. 09:56 Method Of Arrival: Ambulatory ap3 09:56 Acuity: GABRIELLE 3 ap3 Triage Assessment: 09:57 General: Appears in no apparent distress. Behavior is calm, cooperative, appropriate ap3 for age. Pain: Complains of pain in chest. Neuro: Level of Consciousness is awake, alert, obeys commands, Oriented to person, place, time, situation, Appropriate for age. Cardiovascular: Patient's skin is warm and dry. Respiratory: Reports cough that is productive, Airway is patent Respiratory effort is even, unlabored, Respiratory pattern is regular, symmetrical. Historical: - Allergies: 09:57 No Known Allergies; ap3 - PMHx: 09:57 Hypertension; Hypothyroidism; ap3 - PSHx: 09:57 back fusion and cage; ap3 - Immunization history:: Adult Immunizations unknown. - Social history:: Smoking status: Patient reports the use of cigarette tobacco products, smokes one pack cigarettes per day. Screenin:58 [facility] ED Fall Risk Assessment (Adult) History of falling in the last 3 months, ap3 including since admission No falls in past 3 months (0 pts). Abuse screen: Denies threats or abuse. Nutritional screening: No deficits noted. Tuberculosis screening: No symptoms or risk factors identified. Assessment: 10:23 Reassessment: See triage assessment. nj1 11:35 Reassessment: Patient appears in no apparent distress at this time. Patient is alert, nj1 oriented x 3, equal unlabored respirations, skin warm/dry/pink. Patient states feeling better. Patient states symptoms have improved. Vital Signs: 09:56 Pulse 89; Resp 19; Pulse Ox 100% ; ap3 09:59 BP 115 / 91; ap3 11:36 BP 107 / 77; Pulse 83; Resp 16; Pulse Ox 98% on R/A; nj1 ED Course: 09:41 Patient arrived in ED. mg5 09:43 Anjelica Fragoso PA-C is PHCP. sb4 09:43 Gregorio Coughlin DO is Attending Physician. sb4 09:57 Triage completed. ap3 09:58 Arm band placed on right wrist. ap3 09:58 Patient has correct armband on for positive identification. ap3 10:13 Yessica Smith, RN is Primary Nurse. nj1 10:25 Provided Education on: call light, fall precautions. nj1 10:49 Chest Pa And Lat (2 Views) XRAY In Process Unspecified. EDMS 11:36 No provider procedures requiring assistance completed. Patient did not have IV access nj1 during this emergency room visit. Administered Medications: 10:25 Drug: Dexamethasone IM 10 mg IM once Route: IM; Site: right deltoid; nj1 11:36 Follow up: Response: No adverse reaction nj1 10:25 Drug: Tussionex Pennkinetic ER PO Suspension 5 ml PO once Route: PO; nj1 11:35 Follow up: Response: No adverse reaction; Pain is decreased nj1 10:49 Drug: DuoNeb Nebulize (3:1) (2.5 mg - 0.5 mg) 3 ml Nebulizer once Route: Nebulizer; nj1 11:35 Follow up: Response: No adverse reaction; Marked relief of symptoms nj1 Medication: 09:59 VIS not applicable for this client. ap3 Outcome: 11:22 Discharge ordered by . sb4 11:36 Discharged to home ambulatory, with significant other, nj1 11:36 Condition: stable 11:36 Discharge instructions given to patient, Instructed on discharge instructions, follow up and referral plans. medication usage, Demonstrated understanding of instructions, follow-up care, medications, Prescriptions given X 1, 11:37 Patient left the ED. nj1 Signatures: Dispatcher [employer] EDMS Marium Reis, RN RN ap3 Anjelica Fragoso PA-C PAJonathan sb4 Yessica Smith RN RN nj1 Lesley Bryson mg5 Corrections: (The following items were deleted from the chart) 09:58 09:58 BP 139 / 114; ap3 ap3
--- NOTE | 2023-09-01 11:22 | EDPHYS ---
Physician Documentation [facility] Name: Tori Rios Age: 48 yrs Sex: Female : 1975 Arrival Date: 09/01/2023 Time: 09:37 Bed 11 Private MD: ED Physician Gregorio Coughlin HPI: 09/01 10:01 This 48 yrs old Female presents to ER via Ambulatory with complaints of Cough. sb4 10:01 The patient or guardian reports cough. Onset: The symptoms/episode began/occurred 2 sb4 week(s) ago. Modifying factors: The symptoms are alleviated by nothing, the symptoms are aggravated by laying down. Associated signs and symptoms: Pertinent positives: earache, Pertinent negatives: chest pain, diarrhea, fever, nausea, rhinorrhea, sore throat, vomiting. The patient has not experienced similar symptoms in the past. The patient has not recently seen a physician. persistent cough x 2 weeks, +/- sputum. right ear pain. no other URI symptoms. smokes 1ppd, does not use any inhalers. Historical: - Allergies: 09:57 No Known Allergies; ap3 - PMHx: 09:57 Hypertension; Hypothyroidism; ap3 - PSHx: 09:57 back fusion and cage; ap3 - Immunization history:: Adult Immunizations unknown. - Social history:: Smoking status: Patient reports the use of cigarette tobacco products, smokes one pack cigarettes per day. ROS: 10:01 Constitutional: Negative for fever, chills, and weight loss, sb4 10:01 Respiratory: Positive for cough, 10:01 All other systems are negative, Exam: 10:01 Constitutional: This is a well developed, well nourished patient who is awake, alert, sb4 and in no acute distress. Head/Face: Normocephalic, atraumatic. Eyes: Extra-ocular motions intact. Periorbital areas with no swelling, redness, or edema. ENT: Mucous membranes moist. Cardiovascular: Regular rate and rhythm with a normal S1 and S2. Abdomen/GI: Soft, non-tender, no distension. Skin: Warm, dry with normal turgor. Normal color with no rashes, no lesions, and no evidence of cellulitis. MS/ Extremity: Pulses equal, no cyanosis. Neurovascular intact. Full, normal range of motion. Neuro: Awake and alert, GCS 15, oriented to person, place, time, and situation. Motor strength 5/5 in all extremities. Sensory grossly intact. 10:01 ENT: TM's: are normal, no evidence of bulging, no dullness, no erythema, fluid levels, bilaterally, 10:01 Respiratory: the patient does not display signs of respiratory distress, Respirations: normal, Breath sounds: bronchial sounds, are heard in the right posterior upper lobe, wheezing: is not appreciated, Vital Signs: 09:56 Pulse 89; Resp 19; Pulse Ox 100% ; ap3 09:59 BP 115 / 91; ap3 11:36 BP 107 / 77; Pulse 83; Resp 16; Pulse Ox 98% on R/A; nj1 MDM: 09:55 Patient medically screened. sb4 10: Differential Diagnosis: Bronchitis Upper Respiratory Infection Viral Syndrome Pneumonia sb4 Other COPD. 11:25 Data reviewed: vital signs, nurses notes, radiologic studies, and as a result, I will sb4 discharge patient. Independent interpretation of the following test(s) in the Emergency Department X-Ray: My interpretation is my interpretation of the chest xray images are no acute consolidation/secondary signs of PNA. Test considered but Not performed: Labs: not indicated, would not change my management. not hypoxic, tachypneic. Historians other than the Patient: Spouse/Significant Other: . Care significantly affected by the following chronic conditions: Hypertension. Counseling: I had a detailed discussion with the patient and/or guardian regarding the historical points, exam findings, and any diagnostic results supporting the discharge/admit diagnosis, lab results, radiology results, to return to the emergency department if symptoms worsen or persist or if there are any questions or concerns that arise at home, smoking cessation. 09/01 10:01 Order name: Chest Pa And Lat (2 Views) XRAY; Complete Time: 11:19 sb4 Administered Medications: 10:25 Drug: Dexamethasone IM 10 mg IM once Route: IM; Site: right deltoid; nj1 11:36 Follow up: Response: No adverse reaction nj1 10:25 Drug: Tussionex Pennkinetic ER PO Suspension 5 ml PO once Route: PO; nj1 11:35 Follow up: Response: No adverse reaction; Pain is decreased nj1 10:49 Drug: DuoNeb Nebulize (3:1) (2.5 mg - 0.5 mg) 3 ml Nebulizer once Route: Nebulizer; nj1 11:35 Follow up: Response: No adverse reaction; Marked relief of symptoms nj1 Disposition: 16:49 I was immediately available on-site in the Emergency Department for consultation in the ms3 care of the patient. Disposition Summary: 09/01/23 11:22 Discharge Ordered Notes: Location: Home sb4 Problem: an ongoing problem sb4 Symptoms: have improved sb4 Condition: Stable sb4 Diagnosis - Acute bronchitis, unspecified sb4 Followup: sb4 - With: Emergency Department - When: As needed - Reason: Trouble breathing, Worsening of condition Discharge Instructions: - Discharge Summary Sheet sb4 - Acute Bronchitis, Adult sb4 Forms: - Medication Reconciliation Form sb4 - Thank You Letter sb4 - Antibiotic Education sb4 - Prescription Opioid Use sb4 - Patient Portal Instructions sb4 - Leadership Thank You Letter sb4 Prescriptions: - Prednisone 20 mg Oral Tablet - take 1 tablet ORAL route every 12 hours for 5 days; 10 tablet; Refills: 0, sb4 Product Selection Permitted Signatures: Dispatcher [employer] Marium Laura, RN RN ap3 Gregorio Coughlin, DO DO ms3 Anjelica Fragoso PAJonathan PAJonathan sb4 Yessica Smith RN RN nj1
[2023-09-01 12:15] VITALS: BP 107/77; O2SAT 98
== END ==
LOC: ER 09:37
DX: J20.9 Acute bronchitis, unspecified (principal); F17.210 Nicotine dependence, cigarettes, uncomplicated
CPT/HCPCS: 71046; 94640; J1100; J7613; J7644